=== PATIENT | male | born 1970 | race African-American/Black ===

== ENCOUNTER 2018-02-01 17:05 | Inpatient (IN) | payer OTHER ==
[2018-02-01 18:09] VITALS: BMI 18.6
--- NOTE | 2018-02-01 21:08 | HP ---
CIWA Score - CIWA Score Nausea/Vomitin-No Nausea/No Vomiting Muscle Tremors: 2 Anxiety: 1-Mildly Anxious Agitation: 2 Paroxysmal Sweats: No Perspiration Orientation: 2-Disoriented Date<2 days (reports date as january 27, 2018, but able to redirect) Tacttile Disturbances: 0-None Auditory Disturbances: 0-None Visual Disturbances: 1-Very Mild Sensitivity Headache: 0-None Present CIWA-Ar Total Score: 8 Admission ROS BHS - HPI Chief Complaint: alcohol withdrawal symptoms Allergies/Adverse Reactions: Allergies Allergy/AdvReac Type Severity Reaction Status Date / Time No Known Allergies Allergy Verified 02/01/18 20:18 History of Present Illness: 47 yo male with hx of cocaine and alcohol dependence is here seeking detox. PMHX: depression, insomnia, denies any other medical or psychiatric problems. Denies suicidal / homicidal or suicide attempts. Reports last detox 5 years ago in [place]. Longest period of sobrieiryt 6 months. [facility] drinking really bad and was given one dose of librium two weeks ago Exam Limitations: No Limitations - Ebola screening Have you traveled outside of the country in the last 21 days: No (N) Have you had contact with anyone from an Ebola affected area: No Have you been sick,other than usual withdrawal symptoms: No Do you have a fever: No - Review of Systems Constitutional: Loss of Appetite, Changes in sleep, Unintentional Wgt. Loss ( loss 35 lbs over the past year) EENT: reports: No Symptoms Reported Respiratory: reports: No Symptoms reported, Productive cough GI: reports: Poor Appetite, Poor Fluid Intake : reports: No Symptoms Reported Musculoskeletal: reports: No Symptoms Reported Integumentary: reports: No Symptoms Reported (eczema on nasolabia folds), Pruritus, Sweating Neuro: reports: No Symptoms reported Endocrine: reports: Increased Thirst Hematology: reports: No Symptoms Reported Psychiatric: reports: Orientated x3, Anxious Other Systems: Reviewed and Negative Patient History - Patient Medical History Hx Anemia: No Hx Asthma: No Hx Chronic Obstructive Pulmonary Disease (COPD): No Hx Cancer: No Hx Cardiac Disorders: No Hx Congestive Heart Failure: No Hx Hypertension: No Hx Hypercholesterolemia: No Hx Pacemaker: No HX Cerebrovascular Accident: No Hx Seizures: No Hx Dementia: No Hx Diabetes: No Hx Gastrointestinal Disorders: No Hx Liver Disease: No Hx Genitourinary Disorders: No Hx Sexually Transmitted Disorders: No Hx Renal Disease (ESRD): No Hx Thyroid Disease: No Hx Human Immunodeficiency Virus (HIV): No (last tested three months, declines tested today ) Hx Hepatitis C: No Hx Depression: Yes Hx Suicide Attempt: No Hx Bipolar Disorder: No Hx Schizophrenia: No Other Medical History: Eczema and Insomnia - Patient Surgical History Past Surgical History: No Hx Neurologic Surgery: No Hx Cataract Extraction: No Hx Cardiac Surgery: No Hx Lung Surgery: No Hx Breast Surgery: No Hx Breast Biopsy: No Hx Abdominal Surgery: No Hx Appendectomy: No Hx Cholecystectomy: No Hx Genitourinary Surgery: No Hx Section: No Hx Orthopedic Surgery: No Anesthesia Reaction: No - PPD History Previous Implant?: Yes Documented Results: Negative w/o proof PPD to be Administered?: Yes - Reproductive History Patient is a Female of Child Bearing Age (11 -55 yrs old): No - Smoking Cessation Smoking history: Never smoked Hx Chewing Tobacco Use: No Initiated information on smoking cessation: No - Substance & Tx. History Hx Alcohol Use: Yes Hx Substance Use: Yes Substance Use Type: Alcohol, Cocaine, Marijuana Hx Substance Use Treatment: Yes (last detox 5 years ago in [place].) - Substances Abused Alcohol Route: Oral Frequency: Daily Amount used: BEER- 3 SIX PACK Age of first use: 18 Date of Last Use: 02/01/18 Cocaine Route: Smoking Frequency: 1-2 times per week Amount used: $25 Age of first use: 18 Date of Last Use: 01/29/18 Marijuana/Hashish Route: Smoking Frequency: Daily Amount used: $25 Age of first use: 4 (smoke with father ) Date of Last Use: 02/01/18 Family Disease History - Family Disease History Family Disease History: CA: Father (lung cancer ), Other: Father, Mother (alive and well) Admission Physical Exam BHS - Vital Signs Vital Signs: Vital Signs - 24 hr 02/01/18 18:06 Temperature 96.2 F L Pulse Rate 99 H Respiratory 18 Rate Blood Pressure 114/63 - Physical General Appearance: Yes: Appropriately Dressed, Thin, Anxious HEENTM: Yes: EOMI, Hearing grossly Normal, Normal ENT Inspection, Normocephalic , Normal Voice, FELICIA, Pharynx Normal, Tm's normal Respiratory: Yes: Within Normal Limits, Chest Non-Tender, Lungs Clear, Normal Breath Sounds, No Respiratory Distress, No Accessory Muscle Use Neck: Yes: No masses,lesions,Nodules, Trachea in good position Breast: Yes: Breast Exam Deferred Cardiology: Yes: Regular Rhythm, Regular Rate Abdominal: Yes: Normal Bowel Sounds, Non Tender, Flat, Soft Genitourinary: Yes: Within Normal Limits Back: Yes: Normal Inspection Musculoskeletal: Yes: full range of Motion, Gait Steady, Pelvis Stable Extremities: Yes: Normal Capillary Refill, Normal Inspection, Normal Range of Motion, Non-Tender Neurological: Yes: ribber II-XII NML intact, Fully Oriented, Alert, Motor Strength 5/5, Normal Mood/Affect, Normal Response, Depressed Affect Integumentary: Yes: Normal Color, Warm, Moist Lymphatic: Yes: Within Normal Limits - Diagnostic (1) Alcohol dependence with withdrawal Current Visit: Yes Status: Acute (2) Cocaine dependence Current Visit: Yes Status: Acute (3) Marijuana dependence Current Visit: Yes Status: Acute (4) Weight loss Current Visit: Yes Status: Acute (5) Depression Current Visit: Yes Status: Acute Qualifiers: Depression Type: unspecified Qualified Code(s): F32.9 - Major depressive disorder, single episode, unspecified Cleared for Admission [facility] - Detox or Rehab [facility] Level of Care: Medically Supervised Detox Regimen/Protocol: Librium [facility] Breath Alcohol Content Breath Alcohol Content: 0.013 Urine Drug Screen - Results Urine Drug Screen Results: THC-Marijuana, MAURIZIO-Cocaine, BZO-Benzodiazepines
[2018-02-01] MEDS ORDERED: LOPERAMIDE HCL 2 MG CAPSULE PO PRN (21:17)
[2018-02-01] MEDS ORDERED: hydrOXYzine PAMOATE 50 MG CAPSULE (FP) PO PRN (21:17)
[2018-02-01] MEDS ORDERED: MENTHOL/PHENOL 1 EACH UD MM PRN (21:17)
[2018-02-01] MEDS ORDERED: chlordiazePOXIDE HCL 25 MG CAPSULE PO PRN (21:17)
[2018-02-01] MEDS ORDERED: guaiFENesin/D-METHORPHAN HB 10 ML UNIT-DOSE CUPS PO PRN (21:17)
[2018-02-01] MEDS ORDERED: ACETAMINOPHEN 325 MG TABLET (FP) PO PRN (21:17)
[2018-02-01] MEDS ORDERED: MAGNESIUM HYDROX 2400MG/30ML ORAL SUSPENSION 30 ML CUP PO PRN (21:17)
[2018-02-01] MEDS ORDERED: IBUPROFEN 400 MG TABLET (FP) PO PRN (21:17)
[2018-02-01] MEDS ORDERED: chlordiazePOXIDE HCL 25 MG CAPSULE PO ONE (21:17)
[2018-02-01] MEDS ORDERED: MAGNESIUM CITRATE 300 ML BOTTLE PO PRN (21:17)
[2018-02-01] MEDS ORDERED: MAG HYDROX/AL HYDROX/SIMETH 30 ML UNIT-DOSE CUP PO PRN (21:17)
[2018-02-01] MEDS ORDERED: P-EPHED 60MG/TRIPROLIDI 2.5MG TABLET PO PRN (21:17)
[2018-02-01] MEDS ORDERED: MELATONIN 5 MG TABLETS PO PRN (22:00)
[2018-02-01] MEDS: chlordiazePOXIDE HCL 25 MG CAPSULE PO SCH (22:40)
[2018-02-01] MEDS: THIAMINE HCL 100 MG TABLET (FP) PO SCH (22:47)
[2018-02-02 03:35] LABS: URINE APPEARANCE CLEAR; URINE BILIRUBIN NEGATIVE (<2.0 mg/dL); URINE BLOOD NEGATIVE (NEGATIVE); URINE COLOR YELLOW; URINE GLUCOSE (UA) NEGATIVE (NEGATIVE); URINE KETONE NEGATIVE (NEGATIVE); URINE LEUK ESTERASE NEGATIVE (NEGATIVE); URINE NITRITE NEGATIVE (NEGATIVE); URINE PROTEIN NEGATIVE (NEGATIVE)
[2018-02-02] MEDS: chlordiazePOXIDE HCL 25 MG CAPSULE PO SCH ×4 (05:14→23:00)
[2018-02-02] MEDS ORDERED: PRENATAL VITAMINS W/ FOLIC ACID TABLET (FP) PO SCH (10:00)
--- NOTE | 2018-02-02 10:03 | PN ---
S CIWA - CIWA Score Nausea/Vomitin Muscle Tremors: 3 Anxiety: 3 Agitation: 3 Paroxysmal Sweats: 2 Orientation: 0-Oriented Tacttile Disturbances: 1-Very Mild Itch/Numbness Auditory Disturbances: 1-Very Mild Visual Disturbances: 0-None Headache: 2-Mild CIWA-Ar Total Score: 18 BHS Progress Note (SOAP) Subjective: ALERT,IRRITABLE,ANXIOUS,INTERRUPTED SLEEP,TREMOR Objective: 02/02/18 10:00 Vital Signs Temperature 97.7 F 02/02/18 06:40 Pulse Rate 95 H 02/02/18 06:40 Respiratory Rate 20 02/02/18 06:40 Blood Pressure 101/69 02/02/18 06:40 O2 Sat by Pulse Oximetry (%) 02/02/18 10:00 EKG NSR RATE 88.MIN ST IN V2,V3 NO CHEST PAIN,NO SOB,NO DIZZINESS 02/02/18 10:02 Laboratory Last Values Urine Color Yellow 02/01/18 22:52 Urine Appearance Clear 02/01/18 22:52 Urine pH 6.0 (5.0-8.0) 02/01/18 22:52 Ur Specific [place] 1.018 (1.001-1.035) 02/01/18 22:52 Urine Protein Negative (NEGATIVE) 02/01/18 22:52 Urine Glucose (UA) Negative (NEGATIVE) 02/01/18 22:52 Urine Ketones Negative (NEGATIVE) 02/01/18 22:52 Urine Blood Negative (NEGATIVE) 02/01/18 22:52 Urine Nitrite Negative (NEGATIVE) 02/01/18 22:52 Urine Bilirubin Negative (<2.0 mg/dL) 02/01/18 22:52 Urine Urobilinogen 2.0 mg/dL (0.2-1.0) 02/01/18 22:52 Ur Leukocyte Esterase Negative (NEGATIVE) 02/01/18 22:52 LABS PENDING Assessment: 02/02/18 10:02 WITHDRAWAL SYMPTOM Plan: CONTINUE DETOX
--- NOTE | 2018-02-02 10:23 | EKG ---
Test Reason : Blood Pressure : / mmHG Vent. Rate : 088 BPM Atrial Rate : 088 BPM P-R Int : 188 ms QRS Dur : 096 ms QT Int : 358 ms P-R-T Axes : 076 -64 071 degrees QTc Int : 433 ms NORMAL SINUS RHYTHM LEFT ANTERIOR FASCICULAR BLOCK ANTEROSEPTAL INFARCT (CITED ON OR BEFORE 01-FEB-2018) ABNORMAL ECG WHEN COMPARED WITH ECG OF 01-FEB-2018 22:56, SINUS RHYTHM HAS REPLACED ECTOPIC ATRIAL RHYTHM SERIAL CHANGES OF ANTEROSEPTAL INFARCT PRESENT Confirmed by MD SCOTTIE, ROSENDA ([id number]) on 02/02/2018 10:23:21 AM Referred By: Confirmed By:ROSENDA RUBIN MD
--- NOTE | 2018-02-02 10:25 | EKG ---
Test Reason : Blood Pressure : / mmHG Vent. Rate : 071 BPM Atrial Rate : 071 BPM P-R Int : 166 ms QRS Dur : 100 ms QT Int : 370 ms P-R-T Axes : 140 -28 135 degrees QTc Int : 402 ms UNUSUAL P AXIS, POSSIBLE ECTOPIC ATRIAL RHYTHM SEPTAL INFARCT , AGE UNDETERMINED ABNORMAL ECG NO PREVIOUS ECGS AVAILABLE Confirmed by MD SCOTTIE, ROSENDA ([id number]) on 02/02/2018 10:24:59 AM Referred By: Confirmed By:ROSENDA RUBIN MD
[2018-02-02 10:26] LABS: HEMOGLOBIN 12.6 GM/dL (11.7-16.9); MCH 33.7 pg (25.7-33.7); MCHC 33.2 g/dl (32.0-35.9); MEAN CELL VOLUME 101.4 fl (80-96); MEAN PLT VOLUME 7.1 fl (7.5-11.1); PLATELET COUNT 142 K/MM3 (134-434); RBC 3.75 M/mm3 (4.00-5.60); RDW 13.4 % (11.9-15.9); WHITE BLOOD COUNT 2.7 K/mm3 (4.0-10.0)
[2018-02-02 11:12] LABS: ALBUMIN 3.2 g/dl (3.4-5.0); ANION GAP 6 (8-16); BLOOD UREA NITROGEN 19 mg/dL (7-18); CALCIUM 8.4 mg/dL (8.5-10.1); CHLORIDE 109 mmol/L (98-107); CO2 29 mmol/L (21-32); GLUCOSE,RANDOM 82 mg/dL (74-106); SODIUM 144 mmol/L (136-145)
[2018-02-02 11:17] LABS: ALK PHOS 75 U/L (45-117); BILIRUBIN,TOTAL 0.2 mg/dL (0.2-1.0); CREATININE 1.6 mg/dL (0.7-1.3); SGOT/AST 52 U/L (15-37); SGPT/ALT 31 U/L (12-78); TOT PROT 6.2 g/dl (6.4-8.2)
--- NOTE | 2018-02-02 11:19 | CONSULT ---
[facility] Psychiatric Consult - Data Date of interview: 02/02/18 Admission source: [facility] Identifying data: Patient is a 47 year old male, , father of seven, receiving public assistance and currently homeless. This is patient's first admission to [facility]. Pt. admitted to for alcohol and cocaine dependence. Substance Abuse History: Following information confirmed with Mr. Wadsworth: Smoking Cessation. Smoking history: Never smoked. Hx Chewing Tobacco Use: No. Initiated information on smoking cessation: No. - Substance & Tx. History. Hx Alcohol Use: Yes. Hx Substance Use: Yes. Substance Use Type: Alcohol, Cocaine, Marijuana. Hx Substance Use Treatment: Yes (last detox 5 years ago in [place].). - Substances Abused. Alcohol. Route: Oral. Frequency: Daily. Amount used: BEER- 3 SIX PACK. Age of first use: 18. Date of Last Use : 02/01/18. Cocaine. Route: Smoking. Frequency: 1-2 times per week. Amount used: $25. Age of first use: 18. Date of Last Use: 01/29/18. Marijuana/Hashish. Route: Smoking. Frequency: Daily. Amount used: $25. Age of first use: 4 (smoke with father ). Date of Last Use: 02/01/18 Psychiatric History: Pt. denies h/o psychiatric hospitalizations, outpatient care, and suicide attempt. Physical/Sexual Abuse/Trauma History: Denies. Mental Status Exam - Mental Status Exam Alert and Oriented to: Time, Place, Person Cognitive Function: Good Patient Appearance: Well Groomed Mood: Euthymic Affect: Mood Congruent Patient Behavior: Cooperative Speech Pattern: Appropriate Voice Loudness: Normal Thought Process: Goal Oriented Thought Disorder: Not Present Hallucinations: Denies Suicidal Ideation: Denies Homicidal Ideation: Denies Insight/Judgement: Poor Sleep: Fair Appetite: Fair Muscle strength/Tone: Normal Gait/Station: Normal Psychiatric Findings - Problem List ([place] 1, 2,3) (1) Alcohol dependence with withdrawal Current Visit: Yes Status: Acute (2) Cocaine dependence Current Visit: Yes Status: Acute (3) Marijuana dependence Current Visit: Yes Status: Acute (4) Substance induced mood disorder Current Visit: Yes Status: Acute - Initial Treatment Plan Initial Treatment Plan: Psychoeducation provided. Detoxification in progress. Observation.
[2018-02-02] MEDS: THIAMINE HCL 100 MG TABLET (FP) PO SCH (23:00)
[2018-02-03] MEDS: chlordiazePOXIDE HCL 25 MG CAPSULE PO SCH (05:42)
--- NOTE | 2018-02-03 08:45 | PN ---
S CIWA - CIWA Score Nausea/Vomitin Muscle Tremors: 3 Anxiety: 3 Agitation: 2 Paroxysmal Sweats: 1-Minimal Palms Moist Orientation: 0-Oriented Tacttile Disturbances: 1-Very Mild Itch/Numbness Auditory Disturbances: 1-Very Mild Visual Disturbances: 0-None Headache: 2-Mild CIWA-Ar Total Score: 16 BHS Progress Note (SOAP) Subjective: ALERT,IRRITABLE,ANXIOUS,INTERRUPTED SLEEP,TREMOR Objective: 02/03/18 08:43 Vital Signs Temperature 97.9 F 02/03/18 07:10 Pulse Rate 78 02/03/18 07:10 Respiratory Rate 18 02/03/18 07:10 Blood Pressure 116/68 02/03/18 07:10 O2 Sat by Pulse Oximetry (%) Assessment: 02/03/18 08:43 Laboratory Last Values WBC 2.7 K/mm3 (4.0-10.0) L 02/02/18 07:30 RBC 3.75 M/mm3 (4.00-5.60) L 02/02/18 07:30 Hgb 12.6 GM/dL (11.7-16.9) 02/02/18 07:30 Hct 38.0 % (35.4-49) 02/02/18 07:30 MCV 101.4 fl (80-96) H 02/02/18 07:30 MCH 33.7 pg (25.7-33.7) 02/02/18 07:30 MCHC 33.2 g/dl (32.0-35.9) 02/02/18 07:30 RDW 13.4 % (11.9-15.9) 02/02/18 07:30 Plt Count 142 K/MM3 (134-434) 02/02/18 07:30 MPV 7.1 fl (7.5-11.1) L 02/02/18 07:30 Sodium 144 mmol/L (136-145) 02/02/18 08:00 Potassium 4.0 mmol/L (3.5-5.1) 02/02/18 08:00 Chloride 109 mmol/L (98-107) H 02/02/18 08:00 Carbon Dioxide 29 mmol/L (21-32) 02/02/18 08:00 Anion Gap 6 (8-16) L 02/02/18 08:00 BUN 19 mg/dL (7-18) H 02/02/18 08:00 Creatinine 1.6 mg/dL (0.7-1.3) H 02/02/18 08:00 Creat Clearance w eGFR 46.17 (>60) 02/02/18 08:00 Random Glucose 82 mg/dL (74-106) 02/02/18 08:00 Calcium 8.4 mg/dL (8.5-10.1) L 02/02/18 08:00 Total Bilirubin 0.2 mg/dL (0.2-1.0) 02/02/18 08:00 AST 52 U/L (15-37) H 02/02/18 08:00 ALT 31 U/L (12-78) 02/02/18 08:00 Alkaline Phosphatase 75 U/L (45-117) 02/02/18 08:00 Total Protein 6.2 g/dl (6.4-8.2) L 02/02/18 08:00 Albumin 3.2 g/dl (3.4-5.0) L 02/02/18 08:00 Urine Color Yellow 02/01/18 22:52 Urine Appearance Clear 02/01/18 22:52 Urine pH 6.0 (5.0-8.0) 02/01/18 22:52 Ur Specific [place] 1.018 (1.001-1.035) 02/01/18 22:52 Urine Protein Negative (NEGATIVE) 02/01/18 22:52 Urine Glucose (UA) Negative (NEGATIVE) 02/01/18 22:52 Urine Ketones Negative (NEGATIVE) 02/01/18 22:52 Urine Blood Negative (NEGATIVE) 02/01/18 22:52 Urine Nitrite Negative (NEGATIVE) 02/01/18 22:52 Urine Bilirubin Negative (<2.0 mg/dL) 02/01/18 22:52 Urine Urobilinogen 2.0 mg/dL (0.2-1.0) 02/01/18 22:52 Ur Leukocyte Esterase Negative (NEGATIVE) 02/01/18 22:52 RPR Titer Nonreactive (NONREACTIVE) 02/02/18 07:30 02/03/18 08:44 WITHDRAWAL SYMPTOM Plan: CONTINUE DETOX
--- NOTE | 2018-02-03 08:48 | PN ---
S Progress Note Note: PATIENT DID NOT WANT TO CONTINUE TREATMENT,SIGNED RELEASE AMA,,
--- NOTE | 2018-02-03 08:52 | DS ---
[facility] Detox Discharge Summary Admission Date: 02/01/18 Discharge Date: 02/03/18 - History Present History: Alcohol Dependence, Cannabis Dependence, Cocaine Dependence Additional Comments: PATIENT DID NOT WANT TO COMPLETE TREATMENT,SIGNED RELEASE AMA,ALL ATTEMPTS TO CONVINCE PATIENT TO STAY WITH NO [facility]AI[facility] Pertinent Past History: WEIGHT LOSS - Physical Exam Results Vital Signs: Vital Signs Temperature 97.9 F 02/03/18 07:10 Pulse Rate 78 02/03/18 07:10 Respiratory Rate 18 02/03/18 07:10 Blood Pressure 116/68 02/03/18 07:10 O2 Sat by Pulse Oximetry (%) Pertinent Admission Physical Exam Findings: WITHDRAWAL SIGNS AND SYMPTOM Laboratory Last Values WBC 2.7 K/mm3 (4.0-10.0) L 02/02/18 07:30 RBC 3.75 M/mm3 (4.00-5.60) L 02/02/18 07:30 Hgb 12.6 GM/dL (11.7-16.9) 02/02/18 07:30 Hct 38.0 % (35.4-49) 02/02/18 07:30 MCV 101.4 fl (80-96) H 02/02/18 07:30 MCH 33.7 pg (25.7-33.7) 02/02/18 07:30 MCHC 33.2 g/dl (32.0-35.9) 02/02/18 07:30 RDW 13.4 % (11.9-15.9) 02/02/18 07:30 Plt Count 142 K/MM3 (134-434) 02/02/18 07:30 MPV 7.1 fl (7.5-11.1) L 02/02/18 07:30 Sodium 144 mmol/L (136-145) 02/02/18 08:00 Potassium 4.0 mmol/L (3.5-5.1) 02/02/18 08:00 Chloride 109 mmol/L (98-107) H 02/02/18 08:00 Carbon Dioxide 29 mmol/L (21-32) 02/02/18 08:00 Anion Gap 6 (8-16) L 02/02/18 08:00 BUN 19 mg/dL (7-18) H 02/02/18 08:00 Creatinine 1.6 mg/dL (0.7-1.3) H 02/02/18 08:00 Creat Clearance w eGFR 46.17 (>60) 02/02/18 08:00 Random Glucose 82 mg/dL (74-106) 02/02/18 08:00 Calcium 8.4 mg/dL (8.5-10.1) L 02/02/18 08:00 Total Bilirubin 0.2 mg/dL (0.2-1.0) 02/02/18 08:00 AST 52 U/L (15-37) H 02/02/18 08:00 ALT 31 U/L (12-78) 02/02/18 08:00 Alkaline Phosphatase 75 U/L (45-117) 02/02/18 08:00 Total Protein 6.2 g/dl (6.4-8.2) L 02/02/18 08:00 Albumin 3.2 g/dl (3.4-5.0) L 02/02/18 08:00 Urine Color Yellow 02/01/18 22:52 Urine Appearance Clear 02/01/18 22:52 Urine pH 6.0 (5.0-8.0) 02/01/18 22:52 Ur Specific [place] 1.018 (1.001-1.035) 02/01/18 22:52 Urine Protein Negative (NEGATIVE) 02/01/18 22:52 Urine Glucose (UA) Negative (NEGATIVE) 02/01/18 22:52 Urine Ketones Negative (NEGATIVE) 02/01/18 22:52 Urine Blood Negative (NEGATIVE) 02/01/18 22:52 Urine Nitrite Negative (NEGATIVE) 02/01/18 22:52 Urine Bilirubin Negative (<2.0 mg/dL) 02/01/18 22:52 Urine Urobilinogen 2.0 mg/dL (0.2-1.0) 02/01/18 22:52 Ur Leukocyte Esterase Negative (NEGATIVE) 02/01/18 22:52 RPR Titer Nonreactive (NONREACTIVE) 02/02/18 07:30 Vital Signs Temperature 97.9 F 02/03/18 07:10 Pulse Rate 78 02/03/18 07:10 Respiratory Rate 18 02/03/18 07:10 Blood Pressure 116/68 02/03/18 07:10 O2 Sat by Pulse Oximetry (%) - Medication Discharge Medications: Ambulatory Orders NK [No Known Home Medication] 02/01/18 - Diagnosis (1) Alcohol dependence with withdrawal Current Visit: Yes Status: Acute (2) Cocaine dependence Current Visit: Yes Status: Acute (3) Depression Current Visit: Yes Status: Acute Qualifiers: Depression Type: unspecified Qualified Code(s): F32.9 - Major depressive disorder, single episode, unspecified (4) Marijuana dependence Current Visit: Yes Status: Acute (5) Weight loss Current Visit: Yes Status: Acute - AMA Did Patient Leave Against Medical Advice: Yes
[2018-02-03 10:21] VITALS: BP 144/86; PULSE 86; TEMP 97.5
[2018-02-03] MEDS ORDERED: chlordiazePOXIDE 5 MG CAPSULE PO SCH (23:00)
[2018-02-04] MEDS ORDERED: chlordiazePOXIDE HCL 10 MG CAPSULE PO SCH (23:00)
== END 2018-02-03 08:48 | disposition left against medical advice (07) | DRG 770 ==
LOC: YASAS 17:05 → Y6N 20:53
PROVIDERS: ADMIT Internal Medicine; ATTEND Internal Medicine
PROC: HZ2ZZZZ Detoxification Services for Substance Abuse Treatment (ICD-10-PCS; principal; 2018-02-01)
DX: F10.230 Alcohol dependence with withdrawal, uncomplicated (principal); F14.20 Cocaine dependence, uncomplicated; F12.20 Cannabis dependence, uncomplicated; F19.24 Other psychoactive substance dependence with psychoactive substance-induced mood disorder; F32.9 Major depressive disorder, single episode, unspecified; R63.4 Abnormal weight loss; Z68.1 Body mass index [BMI] 19.9 or less, adult
CPT/HCPCS: 36415; 80053; 81003; 85027; 86593; 93005; 93010

== ENCOUNTER 2020-06-16 19:23 | Inpatient (IN) | payer OTHER ==
[2020-06-16 19:40] VITALS: BMI 19.0
--- NOTE | 2020-06-16 21:23 | HP ---
CIWA Score Nausea/Vomitin-No Nausea/No Vomiting Muscle Tremors: None Anxiety: 4-Mod. Anxious/Guarded Agitation: 4-Moderately Restless Paroxysmal Sweats: No Perspiration Orientation: 1-Uncertain about Date Tacttile Disturbances: 0-None Auditory Disturbances: 0-None Visual Disturbances: 0-None Headache: 3-Moderate CIWA-Ar Total Score: 12 - Admission Criteria [facility] Guidelines: Admission for Medically Managed Detox: Requires at least one of the followin. CIWA greater than 12 2. Seizures within the past 24 hours 3. Delirium tremens within the past 24 hours 4. Hallucinations within the past 24 hours 5. Acute intervention needed for co occurring medical disorder 6. Acute intervention needed for co occurring psychiatric disorder 7. Severe withdrawal that cannot be handled at a lower level of care (continued vomiting, continued diarrhea, abnormal vital signs) requiring intravenous medication and/or fluids 8. Patient presents the following: CIWA greater than 12 Admission Criteria Met: Admission criteria met Admitting History and Physical - Smoking History Smoking history: Never smoked - Alcohol/Substance Use Hx Alcohol Use: Yes Admission ROS [facility] Chief Complaint: C/O WORSENING ALCOHOL WITHDRAWAL SX'S. SEEKING DETOX Allergies/Adverse Reactions: Allergies Allergy/AdvReac Type Severity Reaction Status Date / Time No Known Allergies Allergy Verified 02/01/18 20:18 History of Present Illness: HERE FOR ALCOHOL DETOX. CLIENT IS SELF REFERRED. KNOWN TO US. LAST HERE 2017. PRESENTS WITH C/O WITHDRAWAL SX'S,. STATES DRINKS ALCOHOL DAILY. LAST USE A FEW HOURS AGO. DENIES ANY SIGNIFICANT PERIOD OF CLEAN TIME SINCE HIS LAST ADMISSION HERE. + [employer], DENIES BLACK OUTS,SEIZURES. HE ALSO ABUSE COCAINE, CANNABIS. DENIES IVDU, DRUG OVERDOSE. HOMELESS-ASSISTED, DENIES LEGALS Exam Limitations: No Limitations - Ebola screening Have you traveled outside of the country in the last 21 days: No Have you had contact with anyone from an Ebola affected area: No Have you been sick,other than usual withdrawal symptoms: No Do you have a fever: No - Review of Systems Constitutional: No Symptoms Reported, Chills EENT: reports: No Symptoms Reported Respiratory: reports: No Symptoms reported Cardiac: reports: No Symptoms Reported GI: reports: No Symptoms Reported : reports: No Symptoms Reported Musculoskeletal: reports: No Symptoms Reported Integumentary: reports: No Symptoms Reported Neuro: reports: Headache Endocrine: reports: No Symptoms Reported Hematology: reports: No Symptoms Reported Psychiatric: reports: Anxious Other Systems: Reviewed and Negative Patient History - Patient Medical History Hx Anemia: No Hx Asthma: No Hx Chronic Obstructive Pulmonary Disease (COPD): No Hx Cancer: No Hx Cardiac Disorders: No Hx Congestive Heart Failure: No Hx Hypertension: No Hx Hypercholesterolemia: No Hx Pacemaker: No HX Cerebrovascular Accident: No Hx Seizures: No Hx Dementia: No Hx Diabetes: No Hx Gastrointestinal Disorders: No Hx Liver Disease: No Hx Genitourinary Disorders: No Hx Sexually Transmitted Disorders: No Hx Renal Disease (ESRD): No Hx Thyroid Disease: No Hx Human Immunodeficiency Virus (HIV): No Hx Hepatitis C: No Hx Depression: Yes (NON COMPLAINT WITH MEDS) Hx Suicide Attempt: No Hx Bipolar Disorder: No Hx Schizophrenia: No Other Medical History: DENIES - Patient Surgical History Past Surgical History: No Hx Neurologic Surgery: No Hx Cataract Extraction: No Hx Cardiac Surgery: No Hx Lung Surgery: No Hx Breast Surgery: No Hx Breast Biopsy: No Hx Abdominal Surgery: No Hx Appendectomy: No Hx Cholecystectomy: No Hx Genitourinary Surgery: No Hx Section: No Hx Orthopedic Surgery: No Anesthesia Reaction: No - PPD History Previous Implant?: Yes Documented Results: Negative w/o proof Implanted On Prior [facility] Admission?: Yes Date: 02/03/18 Results: NO RESULTS PPD to be Administered?: Yes - Smoking Cessation Smoking history: Never smoked Hx Chewing Tobacco Use: No Initiated information on smoking cessation: No - Substance & Tx. History Hx Alcohol Use: Yes Hx Substance Use: Yes Substance Use Type: Alcohol, Cocaine, Marijuana Hx Substance Use Treatment: Yes ([facility]) - Substances abused Alcohol Other (specify): BEER Substance route: Oral Frequency: Daily Amount used: 24 CANS OF 16 OZ Age of first use: 16 Date of last use: 06/16/20 Crack Substance route: Smoking Frequency: 3-6 times per week (5X) Amount used: 5 BAGS Age of first use: 28 Date of last use: 06/15/20 Marijuana/Hashish Substance route: Smoking Frequency: Daily Amount used: 20 DOLLARS Age of first use: 18 Date of last use: 06/15/20 Admission Physical Exam BHS - Vital Signs Vital Signs: Vital Signs - 24 hr 06/16/20 19:38 Temperature 97.9 F Pulse Rate 98 H Respiratory 18 Rate Blood Pressure 113/73 - Physical General Appearance: Yes: Mild Distress, Thin, Anxious HEENTM: Yes: EOMI, Normocephalic, Normal Voice, FELICIA, Pharynx Normal Respiratory: Yes: Chest Non-Tender, Lungs Clear, Normal Breath Sounds, No Respiratory Distress, No Accessory Muscle Use Neck: Yes: No masses,lesions,Nodules, Supple, Trachea in good position Breast: Yes: Breasts Symetrical Cardiology: Yes: Regular Rhythm, S1, S2, Tachycardia Abdominal: Yes: Normal Bowel Sounds, Non Tender, Soft Genitourinary: Yes: Within Normal Limits Back: Yes: Normal Inspection Musculoskeletal: Yes: full range of Motion, Gait Steady Extremities: Yes: Normal Capillary Refill, Normal Range of Motion, Non-Tender Neurological: Yes: Fully Oriented, Alert, Motor Strength 5/5, Depressed Affect Integumentary: Yes: Normal Color, Dry, Warm Lymphatic: Yes: Within Normal Limits - Diagnostic (1) Lives in homeless intermediate Current Visit: Yes Status: Chronic (2) Alcohol dependence with withdrawal Current Visit: Yes Status: Acute Qualifiers: Complication of substance-induced condition: uncomplicated Qualified Code(s): F10.230 - Alcohol dependence with withdrawal, uncomplicated (3) Cocaine dependence Current Visit: Yes Status: Acute Qualifiers: Substance use status: uncomplicated Qualified Code(s): F14.20 - Cocaine dependence, uncomplicated (4) Depression Current Visit: Yes Status: Chronic Qualifiers: Depression Type: unspecified Qualified Code(s): F32.9 - Major depressive disorder, single episode, unspecified (5) Marijuana dependence Current Visit: Yes Status: Acute (6) Substance induced mood disorder Current Visit: Yes Status: Suspected (7) At risk for dehydration due to poor fluid intake Current Visit: Yes Status: Acute Cleared for Admission S - Detox or Rehab [facility] Level of Care: Medically Managed Detox Regimen/Protocol: Ativan Claeared for Rehab Admission: No Breathalyzer - Breathalyzer Breathalyzer: 0 Urine Drug Screen - Test Device Lot number: [id number] Expiration date: 01/17/22 - Control Is test valid?: Yes - Results Drug screen NEGATIVE: No Urine drug screen results: THC-Marijuana, MAURIZIO-Cocaine Inpatient Rehab Admission - Rehab Decision to Admit Inpatient rehab admission?: No
[2020-06-16] MEDS ORDERED: MAG HYDROX/AL HYDROX/SIMETH 30 ML UNIT-DOSE CUP PO PRN (21:28)
[2020-06-16] MEDS ORDERED: MAGNESIUM HYDROX 2400MG/30ML ORAL SUSPENSION 30 ML CUP PO PRN (21:28)
[2020-06-16] MEDS ORDERED: MAGNESIUM CITRATE 300 ML BOTTLE PO PRN (21:28)
[2020-06-16] MEDS ORDERED: IBUPROFEN 400 MG TABLET (FP) PO PRN (21:28)
[2020-06-16] MEDS ORDERED: LORazepam 1 MG TABLET PO PRN (21:28)
[2020-06-16] MEDS ORDERED: guaiFENesin 200 MG/10 ML 10 ML UNIT-DOSE CUPS PO PRN (21:28)
[2020-06-16] MEDS ORDERED: BISMUTH SUBSALICYLATE 524 MG/30 ML UD PO PRN (21:28)
[2020-06-16] MEDS ORDERED: ONDANSETRON *ODT* 4 MG TABLET SL PRN (21:28)
[2020-06-16] MEDS ORDERED: METHOCARBAMOL 500 MG TABLET PO PRN (21:28)
[2020-06-16] MEDS ORDERED: MENTHOL/PHENOL 1 EACH UD MM PRN (21:28)
[2020-06-16] MEDS ORDERED: DICYCLOMINE HCL 10 MG CAPSULE PO PRN (21:28)
[2020-06-16] MEDS ORDERED: P-EPHED 60MG/TRIPROLIDI 2.5MG TABLET PO PRN (21:28)
[2020-06-16] MEDS ORDERED: ACETAMINOPHEN 325 MG TABLET (FP) PO PRN ×2 (21:28)
[2020-06-16] MEDS ORDERED: MELATONIN 5 MG TABLETS PO SCH (22:00)
[2020-06-16] MEDS: LORazepam 2 MG TABLET PO SCH (23:15)
[2020-06-16] MEDS: THIAMINE HCL 100 MG TABLET (FP) PO SCH (23:16)
[2020-06-17] MEDS: LORazepam 2 MG TABLET PO SCH ×4 (05:32→22:01)
--- NOTE | 2020-06-17 08:40 | CONSULT ---
[facility] Psychiatric Consult - Data Date of interview: 06/17/20 Admission source: [id number] Identifying data: Mr Wadsworth is a 50 years old single Black male, father of 7 children, unemployed receiving public asistance, homeless seeking detox treatment for alcohol, cocaine and cannabis Substance Abuse History: Reports history of alcohol, cocaine and marijuana use. Refer to addiction counselor's summary for futher information Medical History: Unremarkable. Psychiatric History: Patient is known for one previous admission to this facility. He denies history of previous psychiatric treatment. Denies previous psychiaric hospitalization or suicidal attempt. At present, reports sleeping poorly Physical/Sexual Abuse/Trauma History: Denies history of abuse as a child or DV relationship as an adult Mental Status Exam - Mental Status Exam Alert and Oriented to: Time, Place, Person Cognitive Function: Fair Patient Appearance: Disheveled Mood: Hopeful, Euthymic Affect: Appropriate Patient Behavior: Cooperative Speech Pattern: Clear Voice Loudness: Normal Thought Process: Intact Hallucinations: Denies Suicidal Ideation: Denies Homicidal Ideation: Denies Insight/Judgement: Poor Sleep: Poorly Appetite: Good Muscle strength/Tone: Normal Gait/Station: Normal Psychiatric Findings - Problem List ([place] 1, 2,3) (1) Substance-induced sleep disorder Current Visit: Yes Status: Acute (2) Alcohol dependence with withdrawal Current Visit: Yes Status: Acute Qualifiers: Complication of substance-induced condition: uncomplicated Qualified Code(s): F10.230 - Alcohol dependence with withdrawal, uncomplicated (3) Cocaine dependence Current Visit: Yes Status: Acute Qualifiers: Substance use status: uncomplicated Qualified Code(s): F14.20 - Cocaine dep endence, uncomplicated (4) Cannabis dependence Current Visit: Yes Status: Acute - Initial Treatment Plan Initial Treatment Plan: 1) Start Melatonin 10 mg po HS prn for insomnia. 2) Continue inpatient detoxification
[2020-06-17] MEDS: PRENATAL VITAMINS W/ FOLIC ACID TABLET (FP) PO SCH (10:44)
[2020-06-17 11:07] LABS: ALBUMIN 3.2 g/dl (3.4-5.0); BILIRUBIN,TOTAL 0.4 mg/dL (0.2-1); CALCIUM 8.7 mg/dL (8.5-10.1); CREATININE 1.6 mg/dL (0.55-1.3); POTASSIUM 3.9 mmol/L (3.5-5.1); TOT PROT 6.5 g/dl (6.4-8.2)
[2020-06-17 11:40] LABS: HEMATOCRIT 38.6 % (35.4-49); HEMOGLOBIN 12.8 GM/dL (11.7-16.9); MCH 34.1 pg (25.7-33.7); MEAN CELL VOLUME 103.1 fl (80-96); MEAN PLT VOLUME 7.6 fl (7.5-11.1); PLATELET COUNT 136 K/MM3 (134-434); RBC 3.74 M/mm3 (4.00-5.60); RDW 13.3 % (11.9-15.9); WHITE BLOOD COUNT 2.9 K/mm3 (4.0-10.0)
--- NOTE | 2020-06-17 12:46 | EKG ---
Test Reason : Blood Pressure : / mmHG Vent. Rate : 087 BPM Atrial Rate : 087 BPM P-R Int : 176 ms QRS Dur : 090 ms QT Int : 374 ms P-R-T Axes : 074 -69 068 degrees QTc Int : 450 ms NORMAL SINUS RHYTHM POSSIBLE LEFT ATRIAL ENLARGEMENT LEFT ANTERIOR FASCICULAR BLOCK ABNORMAL ECG WHEN COMPARED WITH ECG OF 02-FEB-2018 09:35, CRITERIA FOR ANTEROSEPTAL INFARCT ARE NO LONGER PRESENT Confirmed by Severino Ravi ([id number]) on 06/17/2020 12:45:56 PM Referred By: Confirmed By:Severino Ravi
--- NOTE | 2020-06-17 14:48 | PN ---
S CIWA - CIWA Score Nausea/Vomitin-Mild Nausea/No Vomiting Muscle Tremors: 2 Anxiety: 2 Agitation: 0-Normal Activity Paroxysmal Sweats: 1-Minimal Palms Moist Orientation: 1-Uncertain about Date (day of week) Tacttile Disturbances: 1-Very Mild Itch/Numbness Auditory Disturbances: 0-None Visual Disturbances: 2-Mild Sensitivity Headache: 0-None Present CIWA-Ar Total Score: 10 S Progress Note (SOAP) Subjective: 50 years old male was admitted on 06/16/20 for alcohol withdrawal wx management treating with ativan detox regiment ate breakfast and lunch in room tolerated food well feels tired limited conversation with staff Objective: 06/17/20 14:48 Laboratory Tests 06/17/20 06/17/20 06/17/20 07:20 07:20 07:30 WBC 2.9 L RBC 3.74 L Hgb 12.8 Hct 38.6 MCV 103.1 H MCH 34.1 H MCHC 33.0 RDW 13.3 Plt Count 136 MPV 7.6 Sodium 143 Potassium 3.9 Chloride 110 H Carbon Dioxide 27 Anion Gap 7 L BUN 25.0 H Creatinine 1.6 H Est GFR (CKD-EPI)AfAm 56.57 Est GFR (CKD-EPI)NonAf 48.81 Random Glucose 73 L Calcium 8.7 Total Bilirubin 0.4 AST 27 ALT 21 Alkaline Phosphatase 101 Total Protein 6.5 Albumin 3.2 L Syphilis Serology Non-reactive covid pending 06/17/20 14:49 06/17/20 14:49 renal insufficient Assessment: 06/17/20 14:50 alcohol withdrawal Plan: ativan regiment
[2020-06-17 18:53] LABS: PH,URINE 6.5 (5.0-8.0); URINE APPEARANCE CLEAR; URINE BILIRUBIN NEGATIVE (NEGATIVE); URINE COLOR YELLOW; URINE GLUCOSE (UA) NEGATIVE (NEGATIVE); URINE KETONE TRACE (NEGATIVE); URINE LEUK ESTERASE NEGATIVE (NEGATIVE); URINE NITRITE NEGATIVE (NEGATIVE); URINE PROTEIN NEGATIVE (NEGATIVE)
[2020-06-17] MEDS: MELATONIN 5 MG TABLETS PO PRN (22:00)
[2020-06-17] MEDS: THIAMINE HCL 100 MG TABLET (FP) PO SCH (23:00)
[2020-06-18] MEDS: LORazepam 1 MG TABLET PO SCH ×4 (05:41→22:15)
[2020-06-18] MEDS: PRENATAL VITAMINS W/ FOLIC ACID TABLET (FP) PO SCH (10:34)
--- NOTE | 2020-06-18 12:35 | PN ---
S CIWA - CIWA Score Nausea/Vomitin-Mild Nausea/No Vomiting Muscle Tremors: 2 Anxiety: 2 Agitation: 0-Normal Activity Paroxysmal Sweats: 1-Minimal Palms Moist Orientation: 0-Oriented Tacttile Disturbances: 0-None Auditory Disturbances: 0-None Visual Disturbances: 0-None Headache: 0-None Present CIWA-Ar Total Score: 6 BHS Progress Note (SOAP) Subjective: 50 years old male was admitted on 06/16/20 for alcohol withdrawal sx management treating with ativan detox regiment feels better today tolerate food well ambulating on hallway social with peers in day room mr kenyon determines to maintain sober Objective: 06/18/20 12:39 Vital Signs - 24 hr 06/17/20 06/17/20 06/17/20 13:09 16:34 20:58 Temperature 97.3 F L 97.3 F L 98.0 F Pulse Rate 109 H 80 102 H Respiratory 16 16 18 Rate Blood Pressure 105/77 104/72 104/63 O2 Sat by Pulse 99 96 Oximetry (%) 06/18/20 06/18/20 06:48 08:56 Temperature 97.5 F L 96.9 F L Pulse Rate 83 116 H Respiratory 18 20 Rate Blood Pressure 115/68 118/83 O2 Sat by Pulse 99 Oximetry (%) Laboratory Tests 06/16/20 06/17/20 06/17/20 22:59 07:20 07:20 WBC RBC Hgb Hct MCV MCH MCHC RDW Plt Count MPV Sodium 143 Potassium 3.9 Chloride 110 H Carbon Dioxide 27 Anion Gap 7 L BUN 25.0 H Creatinine 1.6 H Est GFR (CKD-EPI)AfAm 56.57 Est GFR (CKD-EPI)NonAf 48.81 Random Glucose 73 L Calcium 8.7 Total Bilirubin 0.4 AST 27 ALT 21 Alkaline Phosphatase 101 Total Protein 6.5 Albumin 3.2 L Urine Color Urine Appearance Urine pH Ur Specific [place] Urine Protein Urine Glucose (UA) Urine Ketones Urine Blood Urine Nitrite Urine Bilirubin Urine Urobilinogen Ur Leukocyte Esterase Syphilis Serology Non-reactive COVID-19 (DIPIKA) Not detected 06/17/20 06/17/20 07:30 15:20 WBC 2.9 L RBC 3.74 L Hgb 12.8 Hct 38.6 MCV 103.1 H MCH 34.1 H MCHC 33.0 RDW 13.3 Plt Count 136 MPV 7.6 Sodium Potassium Chloride Carbon Dioxide Anion Gap BUN Creatinine Est GFR (CKD-EPI)AfAm Est GFR (CKD-EPI)NonAf Random Glucose Calcium Total Bilirubin AST ALT Alkaline Phosphatase Total Protein Albumin Urine Color Yellow Urine Appearance Clear Urine pH 6.5 Ur Specific [place] 1.023 Urine Protein Negative Urine Glucose (UA) Negative Urine Ketones Trace H Urine Blood Negative Urine Nitrite Negative Urine Bilirubin Negative Urine Urobilinogen 1.0 Ur Leukocyte Esterase Negative Syphilis Serology COVID-19 (IDPIKA) 06/18/20 12:42 chronic leukocytopenia 06/18/20 12:46 asymptomatic Assessment: 06/18/20 12:46 alcohol withdrawal Plan: ativan regiment
[2020-06-18 21:48] VITALS: BP 112/69; PULSE 81; TEMP 97.7
[2020-06-18] MEDS: MELATONIN 5 MG TABLETS PO PRN (22:14)
[2020-06-18] MEDS: THIAMINE HCL 100 MG TABLET (FP) PO SCH (22:14)
[2020-06-19] MEDS ORDERED: LORazepam 0.5 MG TABLET PO PRN
[2020-06-19] MEDS ORDERED: LORazepam 0.5 MG TABLET PO SCH (05:00)
--- NOTE | 2020-06-19 06:10 | DS ---
[facility] Detox Discharge Summary Admission Date: 06/16/20 Discharge Date: 06/19/20 - History Additional Comments: Patient is being discharged to home. He is alert and oriented x 3, ambulates independently, not in acute distress and vital signs stable. He is medically stable to be discharged at this time. He reports that he has no home medications and does not need any prescription to be filled. Patient encouraged to follow with his primary physician for further evaluation of his medical needs. Pertinent Past History: Alcohol dependence Cannabis dependence Cocaine dependence Leukocytopenia Renal Insufficiency Substance induced sleep disorder Depression Weight loss - Physical Exam Results Vital Signs: Vital Signs Temperature 97.7 F 06/18/20 20:54 Pulse Rate 81 06/18/20 20:54 Respiratory Rate 16 06/18/20 20:54 Blood Pressure 112/69 06/18/20 20:54 O2 Sat by Pulse Oximetry (%) 98 06/18/20 20:54 Laboratory Last Values WBC 2.9 K/mm3 (4.0-10.0) L 06/17/20 07:30 RBC 3.74 M/mm3 (4.00-5.60) L 06/17/20 07:30 Hgb 12.8 GM/dL (11.7-16.9) 06/17/20 07:30 Hct 38.6 % (35.4-49) 06/17/20 07:30 MCV 103.1 fl (80-96) H 06/17/20 07:30 MCH 34.1 pg (25.7-33.7) H 06/17/20 07:30 MCHC 33.0 g/dl (32.0-35.9) 06/17/20 07:30 RDW 13.3 % (11.9-15.9) 06/17/20 07:30 Plt Count 136 K/MM3 (134-434) 06/17/20 07:30 MPV 7.6 fl (7.5-11.1) 06/17/20 07:30 Sodium 143 mmol/L (136-145) 06/17/20 07:20 Potassium 3.9 mmol/L (3.5-5.1) 06/17/20 07:20 Chloride 110 mmol/L (98-107) H 06/17/20 07:20 Carbon Dioxide 27 mmol/L (21-32) 06/17/20 07:20 Anion Gap 7 MMOL/L (8-16) L 06/17/20 07:20 BUN 25.0 mg/dL (7-18) H 06/17/20 07:20 Creatinine 1.6 mg/dL (0.55-1.3) H 06/17/20 07:20 Est GFR (CKD-EPI)AfAm 56.57 06/17/20 07:20 Est GFR (CKD-EPI)NonAf 48.81 06/17/20 07:20 Random Glucose 73 mg/dL (74-106) L 06/17/20 07:20 Calcium 8.7 mg/dL (8.5-10.1) 06/17/20 07:20 Total Bilirubin 0.4 mg/dL (0.2-1) 06/17/20 07:20 AST 27 U/L (15-37) 06/17/20 07:20 ALT 21 U/L (13-61) 06/17/20 07:20 Alkaline Phosphatase 101 U/L (45-117) 06/17/20 07:20 Total Protein 6.5 g/dl (6.4-8.2) 06/17/20 07:20 Albumin 3.2 g/dl (3.4-5.0) L 06/17/20 07:20 Urine Color Yellow 06/17/20 15:20 Urine Appearance Clear 06/17/20 15:20 Urine pH 6.5 (5.0-8.0) 06/17/20 15:20 Ur Specific [place] 1.023 (1.010-1.035) 06/17/20 15:20 Urine Protein Negative (NEGATIVE) 06/17/20 15:20 Urine Glucose (UA) Negative (NEGATIVE) 06/17/20 15:20 Urine Ketones Trace (NEGATIVE) H 06/17/20 15:20 Urine Blood Negative (NEGATIVE) 06/17/20 15:20 Urine Nitrite Negative (NEGATIVE) 06/17/20 15:20 Urine Bilirubin Negative (NEGATIVE) 06/17/20 15:20 Urine Urobilinogen 1.0 mg/dL (0.2-1.0) 06/17/20 15:20 Ur Leukocyte Esterase Negative (NEGATIVE) 06/17/20 15:20 Syphilis Serology Non-reactive (NONREACTIVE) 06/17/20 07:20 COVID-19 (DIPIKA) Not detected (Not Detected) 06/16/20 22:59 Pertinent Admission Physical Exam Findings: Alcohol withdrawal symptoms - Treatment Hospital Course: Detoxed Safely, Responded well, Discharged Condition Good - Medication Discharge Medications: Ambulatory Orders NK [No Known Home Medication] 02/01/18 - Diagnosis (1) Alcohol dependence with withdrawal Status: Chronic Qualifiers: Complication of substance-induced condition: uncomplicated Qualified Code(s): F10.230 - Alcohol dependence with withdrawal, uncomplicated (2) At risk for dehydration due to poor fluid intake Status: Chronic (3) Cannabis dependence Status: Chronic (4) Cocaine dependence Status: Chronic Qualifiers: Substance use status: uncomplicated Qualified Code(s): F14.20 - Cocaine dependence, uncomplicated (5) Leukocytopenia Status: Chronic Qualifiers: Leukopenia type: unspecified Qualified Code(s): D72.819 - Decreased white b lood cell count, unspecified (6) Renal insufficiency Status: Chronic (7) Substance-induced sleep disorder Status: Chronic (8) Depression Status: Chronic Qualifiers: Depression Type: unspecified Qualified Code(s): F32.9 - Major depressive disorder, single episode, unspecified (9) Weight loss Status: Chronic - AMA Did Patient Leave Against Medical Advice: No
[2020-06-20] MEDS ORDERED: LORazepam 0.5 MG TABLET PO ONE (05:00)
== END 2020-06-19 04:48 | disposition home or self-care (01) | DRG 774 ==
LOC: YASAS 19:23 → Y3N 22:21
PROVIDERS: ADMIT Allergy & Immunology; ATTEND Allergy & Immunology
PROC: HZ2ZZZZ Detoxification Services for Substance Abuse Treatment (ICD-10-PCS; principal; 2020-06-16)
DX: F10.230 Alcohol dependence with withdrawal, uncomplicated (principal); F14.20 Cocaine dependence, uncomplicated; F12.20 Cannabis dependence, uncomplicated; F19.24 Other psychoactive substance dependence with psychoactive substance-induced mood disorder; F19.282 Other psychoactive substance dependence with psychoactive substance-induced sleep disorder; F32.9 Major depressive disorder, single episode, unspecified; D72.819 Decreased white blood cell count, unspecified; N28.9 Disorder of kidney and ureter, unspecified; R63.8 Other symptoms and signs concerning food and fluid intake; Z63.4 Disappearance and death of family member; Z68.1 Body mass index [BMI] 19.9 or less, adult; Z56.0 Unemployment, unspecified; Z59.0 Homelessness
CPT/HCPCS: 36415; 80053; 81003; 85027; 86780; 93005; 93010; U0003

== ENCOUNTER 2022-02-20 08:51 | Inpatient (IN) | payer OTHER ==
[2022-02-20 09:30] VITALS: BMI 18.2
[2022-02-20] MEDS ORDERED: IBUPROFEN 400 MG TABLET (FP) PO PRN (10:32)
[2022-02-20] MEDS ORDERED: BENZOCAINE/MENTHOL (CHLORASEPTIC ) LOZENGE MM PRN (10:32)
[2022-02-20] MEDS ORDERED: LOPERAMIDE HCL 2 MG CAPSULE PO PRN (10:32)
[2022-02-20] MEDS ORDERED: METHOCARBAMOL 500 MG TABLET PO PRN (10:32)
[2022-02-20] MEDS ORDERED: ACETAMINOPHEN 325 MG TABLET (FP) PO PRN ×2 (10:32)
[2022-02-20] MEDS ORDERED: DICYCLOMINE HCL 10 MG CAPSULE PO PRN (10:32)
[2022-02-20] MEDS ORDERED: MAG HYDROX/AL HYDROX/SIMETH 30 ML UNIT-DOSE CUP PO PRN (10:32)
[2022-02-20] MEDS ORDERED: BISMUTH SUBSALICYLATE 262 MG/15 ML BTL PO PRN (10:32)
[2022-02-20] MEDS ORDERED: ONDANSETRON *ODT* 4 MG TABLET SL PRN (10:32)
[2022-02-20] MEDS ORDERED: MAGNESIUM CITRATE 300 ML BOTTLE PO PRN (10:32)
[2022-02-20] MEDS ORDERED: MAGNESIUM HYDROX 2400MG/30ML ORAL SUSPENSION 30 ML CUP PO PRN (10:32)
[2022-02-20] MEDS: PRENATAL VITAMINS W/ FOLIC ACID TABLET (FP) PO SCH (13:54)
[2022-02-20] MEDS: hydrOXYzine PAMOATE 25 MG CAPSULE (FP) PO SCH ×3 (13:54→23:25)
[2022-02-20] MEDS ORDERED: chlordiazePOXIDE HCL 25 MG CAPSULE PO PRN (22:44)
[2022-02-20] MEDS: MELATONIN 5 MG TABLETS PO SCH (23:24)
[2022-02-20] MEDS: THIAMINE HCL 100 MG TABLET (FP) PO SCH (23:25)
[2022-02-20] MEDS: chlordiazePOXIDE HCL 25 MG CAPSULE PO SCH (23:25)
[2022-02-21] MEDS: chlordiazePOXIDE HCL 25 MG CAPSULE PO SCH ×4 (05:41→22:14)
[2022-02-21] MEDS: hydrOXYzine PAMOATE 25 MG CAPSULE (FP) PO SCH ×5 (05:42→22:14)
[2022-02-21 10:00] LABS: HEMATOCRIT 39.6 % (35.4-49); HEMOGLOBIN 13.1 GM/dL (11.7-16.9); MCH 32.6 pg (25.7-33.7); MCHC 33.1 g/dl (32.0-35.9); MEAN CELL VOLUME 98.4 fl (80-96); MEAN PLT VOLUME 7.2 fl (7.5-11.1); PLATELET COUNT 203 10^3/uL (134-434); RBC 4.02 M/mm3 (4.00-5.60); RDW 14.2 % (11.9-15.9)
[2022-02-21 10:11] LABS: WHITE BLOOD COUNT 1.7 K/mm3 (4.0-10.0)
[2022-02-21] MEDS: PRENATAL VITAMINS W/ FOLIC ACID TABLET (FP) PO SCH (10:21)
[2022-02-21 10:27] LABS: ALBUMIN 3.6 g/dl (3.4-5.0); BLOOD UREA NITROGEN 21.1 mg/dL (7-18); CALCIUM 9.5 mg/dL (8.5-10.1)
[2022-02-21 10:29] LABS: CREATININE 1.6 mg/dL (0.55-1.3)
[2022-02-21 10:31] LABS: BILIRUBIN,TOTAL 0.4 mg/dL (0.2-1)
[2022-02-21] MEDS: MELATONIN 5 MG TABLETS PO SCH (22:14)
[2022-02-21] MEDS: THIAMINE HCL 100 MG TABLET (FP) PO SCH (22:14)
[2022-02-22] MEDS: hydrOXYzine PAMOATE 25 MG CAPSULE (FP) PO SCH ×2 (05:52→10:11)
[2022-02-22] MEDS: chlordiazePOXIDE HCL 25 MG CAPSULE PO SCH ×2 (05:52→10:10)
[2022-02-22 09:10] VITALS: BP 117/85; PULSE 90; TEMP 97.7
[2022-02-22] MEDS: PRENATAL VITAMINS W/ FOLIC ACID TABLET (FP) PO SCH (10:11)
[2022-02-22 14:10] LABS: SARS-CoV-2 NAA Not Detected (Not Detected)
[2022-02-23] MEDS ORDERED: chlordiazePOXIDE HCL 10 MG CAPSULE PO PRN
[2022-02-23] MEDS ORDERED: chlordiazePOXIDE HCL 10 MG CAPSULE PO SCH (05:00)
[2022-02-24] MEDS ORDERED: chlordiazePOXIDE HCL 10 MG CAPSULE PO SCH (05:00)
[2022-02-25] MEDS ORDERED: chlordiazePOXIDE HCL 10 MG CAPSULE PO ONE (05:00)
== END 2022-02-22 11:40 | disposition left against medical advice (07) | DRG 770 ==
LOC: YASAS 08:51 → Y3N 11:42
PROVIDERS: ADMIT Allergy & Immunology; ATTEND Surgery
PROC: HZ2ZZZZ Detoxification Services for Substance Abuse Treatment (ICD-10-PCS; principal; 2022-02-20)
DX: F10.230 Alcohol dependence with withdrawal, uncomplicated (principal); F14.20 Cocaine dependence, uncomplicated; F12.20 Cannabis dependence, uncomplicated; D72.819 Decreased white blood cell count, unspecified; R79.89 Other specified abnormal findings of blood chemistry
CPT/HCPCS: 36415; 80053; 85027; 86780; 93005; 93010; C9803-CS; U0003; U0005

== ENCOUNTER 2022-05-25 09:44 | Inpatient (IN) | payer OTHER ==
[2022-05-25 11:56] VITALS: BMI 19.0
[2022-05-25] MEDS ORDERED: MAGNESIUM CITRATE 300 ML BOTTLE PO PRN (13:19)
[2022-05-25] MEDS ORDERED: MAGNESIUM HYDROX 2400MG/30ML ORAL SUSPENSION 30 ML CUP PO PRN (13:19)
[2022-05-25] MEDS ORDERED: BENZOCAINE/MENTHOL (CHLORASEPTIC ) LOZENGE MM PRN (13:19)
[2022-05-25] MEDS ORDERED: BISMUTH SUBSALICYLATE 524 MG/30 ML PO PRN (13:19)
[2022-05-25] MEDS ORDERED: IBUPROFEN 600 MG TABLET (FP) PO PRN (13:19)
[2022-05-25] MEDS ORDERED: MAG HYDROX/AL HYDROX/SIMETH 30 ML UNIT-DOSE CUP PO PRN (13:19)
[2022-05-25] MEDS ORDERED: DICYCLOMINE HCL 10 MG CAPSULE PO PRN (13:19)
[2022-05-25] MEDS ORDERED: LOPERAMIDE HCL 2 MG CAPSULE PO PRN (13:19)
[2022-05-25] MEDS ORDERED: ONDANSETRON *ODT* 4 MG TABLET SL PRN (13:19)
[2022-05-25] MEDS ORDERED: ACETAMINOPHEN 325 MG TABLET (FP) PO PRN ×2 (13:19)
[2022-05-25] MEDS ORDERED: IBUPROFEN 400 MG TABLET (FP) PO PRN (13:19)
[2022-05-25] MEDS: diazePAM 5 MG TABLET PO PRN (14:26)
[2022-05-25] MEDS: hydrOXYzine PAMOATE 25 MG CAPSULE (FP) PO SCH ×3 (14:27→22:06)
[2022-05-25] MEDS: diazePAM 5 MG TABLET PO SCH ×2 (18:38→22:05)
[2022-05-25] MEDS: THIAMINE HCL 100 MG TABLET (FP) PO SCH (22:06)
[2022-05-25] MEDS: MELATONIN 5 MG TABLETS PO SCH (22:07)
[2022-05-26] MEDS: hydrOXYzine PAMOATE 25 MG CAPSULE (FP) PO SCH ×5 (05:28→22:06)
[2022-05-26] MEDS: diazePAM 5 MG TABLET PO SCH ×4 (05:28→22:05)
[2022-05-26 10:27] LABS: HEMATOCRIT 40.8 % (35.4-49); HEMOGLOBIN 13.5 GM/dL (11.7-16.9); MCH 33.2 pg (25.7-33.7); MCHC 33.1 g/dl (32.0-35.9); MEAN CELL VOLUME 100.2 fl (80-96); MEAN PLT VOLUME 7.4 fl (7.5-11.1); PLATELET COUNT 158 10^3/uL (134-434); RBC 4.07 M/mm3 (4.00-5.60); RDW 14.5 % (11.9-15.9); WHITE BLOOD COUNT 2.5 K/mm3 (4.0-10.0)
[2022-05-26] MEDS: PRENATAL VITAMINS W/ FOLIC ACID TABLET (FP) PO SCH (10:45)
[2022-05-26] MEDS: METHOCARBAMOL 500 MG TABLET PO PRN (10:46)
[2022-05-26 11:00] LABS: ALBUMIN 3.3 g/dl (3.4-5.0); BLOOD UREA NITROGEN 15.4 mg/dL (7-18); CALCIUM 8.9 mg/dL (8.5-10.1)
[2022-05-26 11:03] LABS: CREATININE 1.5 mg/dL (0.55-1.3)
[2022-05-26 11:05] LABS: BILIRUBIN,TOTAL 0.5 mg/dL (0.2-1); TOT PROT 6.6 g/dl (6.4-8.2)
[2022-05-26] MEDS: THIAMINE HCL 100 MG TABLET (FP) PO SCH (22:05)
[2022-05-26] MEDS: MELATONIN 5 MG TABLETS PO SCH (22:06)
[2022-05-27] MEDS: diazePAM 5 MG TABLET PO SCH ×3 (05:33→22:10)
[2022-05-27] MEDS: hydrOXYzine PAMOATE 25 MG CAPSULE (FP) PO SCH ×5 (05:33→22:10)
[2022-05-27] MEDS: METHOCARBAMOL 500 MG TABLET PO PRN (10:35)
[2022-05-27] MEDS: PRENATAL VITAMINS W/ FOLIC ACID TABLET (FP) PO SCH (10:36)
[2022-05-27] MEDS: diazePAM 5 MG TABLET PO PRN (10:36)
[2022-05-27] MEDS: MELATONIN 5 MG TABLETS PO SCH (22:10)
[2022-05-27] MEDS: THIAMINE HCL 100 MG TABLET (FP) PO SCH (22:10)
[2022-05-28] MEDS ORDERED: diazePAM 5 MG TABLET PO SCH (06:00)
[2022-05-28 06:55] VITALS: RESP 18
[2022-05-28] MEDS: hydrOXYzine PAMOATE 25 MG CAPSULE (FP) PO SCH ×2 (07:07→10:07)
[2022-05-28 09:15] VITALS: BP 138/91; PULSE 94; TEMP 97.6
[2022-05-28] MEDS: PRENATAL VITAMINS W/ FOLIC ACID TABLET (FP) PO SCH (10:06)
[2022-05-28] MEDS: METHOCARBAMOL 500 MG TABLET PO PRN (10:07)
[2022-05-29] MEDS ORDERED: diazePAM 5 MG TABLET PO ONE (06:00)
== END 2022-05-28 12:35 | disposition home or self-care (01) | DRG 774 ==
LOC: YASAS 09:44 → Y6N 13:19
PROVIDERS: ADMIT Allergy & Immunology; ATTEND Surgery
PROC: HZ2ZZZZ Detoxification Services for Substance Abuse Treatment (ICD-10-PCS; principal; 2022-05-25)
DX: F10.230 Alcohol dependence with withdrawal, uncomplicated (principal); F14.20 Cocaine dependence, uncomplicated; F12.20 Cannabis dependence, uncomplicated; D72.810 Lymphocytopenia; R63.4 Abnormal weight loss; Z68.1 Body mass index [BMI] 19.9 or less, adult; Z59.01 Sheltered homelessness; Z56.0 Unemployment, unspecified
CPT/HCPCS: 36415; 80053; 85027; 86780; C9803-CS; U0003; U0005

== ENCOUNTER 2022-05-31 12:57 | Inpatient (IN) | payer OTHER ==
[2022-05-31 14:12] VITALS: BMI 17.9
[2022-05-31] MEDS ORDERED: BISMUTH SUBSALICYLATE 524 MG/30 ML PO PRN (15:39)
[2022-05-31] MEDS ORDERED: LOPERAMIDE HCL 2 MG CAPSULE PO PRN (15:39)
[2022-05-31] MEDS ORDERED: NICOTINE 10 MG CARTRIDGE (INHALER) IH PRN (15:39)
[2022-05-31] MEDS ORDERED: IBUPROFEN 600 MG TABLET (FP) PO PRN (15:39)
[2022-05-31] MEDS ORDERED: MAG HYDROX/AL HYDROX/SIMETH 30 ML UNIT-DOSE CUP PO PRN (15:39)
[2022-05-31] MEDS ORDERED: BENZOCAINE/MENTHOL (CHLORASEPTIC ) LOZENGE MM PRN (15:39)
[2022-05-31] MEDS ORDERED: DICYCLOMINE HCL 10 MG CAPSULE PO PRN (15:39)
[2022-05-31] MEDS ORDERED: ONDANSETRON *ODT* 4 MG TABLET SL PRN (15:39)
[2022-05-31] MEDS ORDERED: METHOCARBAMOL 500 MG TABLET PO PRN (15:39)
[2022-05-31] MEDS ORDERED: MAGNESIUM HYDROX 2400MG/30ML ORAL SUSPENSION 30 ML CUP PO PRN (15:39)
[2022-05-31] MEDS ORDERED: IBUPROFEN 400 MG TABLET (FP) PO PRN (15:39)
[2022-05-31] MEDS ORDERED: MAGNESIUM CITRATE 300 ML BOTTLE PO PRN (15:39)
[2022-05-31] MEDS ORDERED: ACETAMINOPHEN 325 MG TABLET (FP) PO PRN ×2 (15:39)
[2022-05-31] MEDS: diazePAM 5 MG TABLET PO SCH ×2 (17:25→22:18)
[2022-05-31] MEDS: hydrOXYzine PAMOATE 25 MG CAPSULE (FP) PO SCH ×2 (17:26→22:18)
[2022-05-31] MEDS: THIAMINE HCL 100 MG TABLET (FP) PO SCH (22:18)
[2022-05-31] MEDS: MELATONIN 5 MG TABLETS PO SCH (22:18)
[2022-06-01] MEDS: diazePAM 5 MG TABLET PO SCH ×4 (05:01→22:01)
[2022-06-01] MEDS: hydrOXYzine PAMOATE 25 MG CAPSULE (FP) PO SCH ×5 (05:01→22:01)
[2022-06-01] MEDS: PRENATAL VITAMINS W/ FOLIC ACID TABLET (FP) PO SCH (10:23)
[2022-06-01] MEDS: diazePAM 5 MG TABLET PO PRN (14:26)
[2022-06-01 14:30] LABS: HEMOGLOBIN 12.7 GM/dL (11.7-16.9); MCH 33.2 pg (25.7-33.7); MCHC 33.4 g/dl (32.0-35.9); MEAN CELL VOLUME 99.4 fl (80-96); MEAN PLT VOLUME 7.1 fl (7.5-11.1); PLATELET COUNT 144 10^3/uL (134-434); RBC 3.82 M/mm3 (4.00-5.60); RDW 13.9 % (11.9-15.9)
[2022-06-01 14:41] LABS: CALCIUM 8.7 mg/dL (8.5-10.1)
[2022-06-01 14:42] LABS: ALBUMIN 3.1 g/dl (3.4-5.0); BLOOD UREA NITROGEN 17.1 mg/dL (7-18)
[2022-06-01 14:45] LABS: CREATININE 1.6 mg/dL (0.55-1.3)
[2022-06-01 14:46] LABS: BILIRUBIN,TOTAL 0.4 mg/dL (0.2-1); TOT PROT 6.4 g/dl (6.4-8.2)
[2022-06-01] MEDS: MELATONIN 5 MG TABLETS PO SCH (22:00)
[2022-06-01] MEDS: THIAMINE HCL 100 MG TABLET (FP) PO SCH (22:01)
[2022-06-02] MEDS: hydrOXYzine PAMOATE 25 MG CAPSULE (FP) PO SCH ×4 (05:18→17:40)
[2022-06-02] MEDS: diazePAM 5 MG TABLET PO SCH ×2 (05:18→13:08)
[2022-06-02] MEDS: diazePAM 5 MG TABLET PO PRN ×2 (09:52→17:40)
[2022-06-02] MEDS: PRENATAL VITAMINS W/ FOLIC ACID TABLET (FP) PO SCH (09:52)
[2022-06-02 13:12] VITALS: TEMP 97.8
[2022-06-02 17:05] VITALS: BP 117/70; PULSE 86; RESP 16
[2022-06-03] MEDS ORDERED: diazePAM 5 MG TABLET PO SCH (06:00)
[2022-06-04] MEDS ORDERED: diazePAM 5 MG TABLET PO ONE (06:00)
== END 2022-06-02 20:00 | disposition other institution (70) | DRG 774 ==
LOC: YASAS 12:57 → Y6N 15:41
PROVIDERS: ADMIT Allergy & Immunology; ATTEND Surgery
PROC: HZ2ZZZZ Detoxification Services for Substance Abuse Treatment (ICD-10-PCS; principal; 2022-05-31)
DX: F10.230 Alcohol dependence with withdrawal, uncomplicated (principal); F14.20 Cocaine dependence, uncomplicated; F12.20 Cannabis dependence, uncomplicated; D72.810 Lymphocytopenia; R63.4 Abnormal weight loss; Z68.1 Body mass index [BMI] 19.9 or less, adult; Z59.01 Sheltered homelessness
CPT/HCPCS: 36415; 80053; 85027; 86780; 87811; C9803-CS; U0003; U0005

== ENCOUNTER 2022-06-02 20:24 | Inpatient (IN) | payer OTHER ==
[2022-06-02] MEDS ORDERED: guaiFENesin 200 MG/10 ML 10 ML UNIT-DOSE CUPS PO PRN (23:54)
[2022-06-02] MEDS ORDERED: LOPERAMIDE HCL 2 MG CAPSULE PO PRN (23:54)
[2022-06-02] MEDS ORDERED: MAGNESIUM HYDROX 2400MG/30ML ORAL SUSPENSION 30 ML CUP PO PRN (23:54)
[2022-06-02] MEDS ORDERED: BENZOCAINE/MENTHOL (CHLORASEPTIC ) LOZENGE MM PRN (23:54)
[2022-06-02] MEDS ORDERED: ACETAMINOPHEN 325 MG TABLET (FP) PO PRN (23:54)
[2022-06-02] MEDS ORDERED: P-EPHED 60MG/TRIPROLIDI 2.5MG TABLET PO PRN (23:54)
[2022-06-02] MEDS ORDERED: MAG HYDROX/AL HYDROX/SIMETH 30 ML UNIT-DOSE CUP PO PRN (23:54)
[2022-06-02] MEDS ORDERED: MAGNESIUM CITRATE 300 ML BOTTLE PO PRN (23:54)
[2022-06-02] MEDS ORDERED: IBUPROFEN 400 MG TABLET (FP) PO PRN (23:54)
[2022-06-03] MEDS: MELATONIN 5 MG TABLETS PO SCH ×2 (00:25→21:33)
[2022-06-03] MEDS: PRENATAL VITAMINS W/ FOLIC ACID TABLET (FP) PO SCH (09:34)
[2022-06-03] MEDS: THIAMINE HCL 100 MG TABLET (FP) PO SCH (21:33)
[2022-06-04] MEDS: PRENATAL VITAMINS W/ FOLIC ACID TABLET (FP) PO SCH (10:25)
[2022-06-04] MEDS: THIAMINE HCL 100 MG TABLET (FP) PO SCH (21:12)
[2022-06-04] MEDS: MELATONIN 5 MG TABLETS PO SCH (21:12)
[2022-06-05] MEDS: PRENATAL VITAMINS W/ FOLIC ACID TABLET (FP) PO SCH (10:04)
[2022-06-05] MEDS: MELATONIN 5 MG TABLETS PO SCH (21:45)
[2022-06-05] MEDS: THIAMINE HCL 100 MG TABLET (FP) PO SCH (21:45)
[2022-06-05] MEDS: hydrOXYzine PAMOATE 25 MG CAPSULE (FP) PO PRN (21:46)
[2022-06-06] MEDS: PRENATAL VITAMINS W/ FOLIC ACID TABLET (FP) PO SCH (10:05)
[2022-06-06] MEDS ORDERED: QUEtiapine FUMARATE 50 MG TABLET PO PRN (11:51)
[2022-06-06] MEDS: THIAMINE HCL 100 MG TABLET (FP) PO SCH (21:24)
[2022-06-07 06:54] VITALS: RESP 18
[2022-06-07] MEDS: PRENATAL VITAMINS W/ FOLIC ACID TABLET (FP) PO SCH (10:07)
[2022-06-07] MEDS: THIAMINE HCL 100 MG TABLET (FP) PO SCH (21:16)
[2022-06-07] MEDS: QUEtiapine FUMARATE 50 MG TABLET PO PRN (21:17)
[2022-06-07] MEDS: hydrOXYzine PAMOATE 25 MG CAPSULE (FP) PO PRN (21:17)
[2022-06-08] MEDS: PRENATAL VITAMINS W/ FOLIC ACID TABLET (FP) PO SCH (10:00)
[2022-06-08] MEDS: QUEtiapine FUMARATE 50 MG TABLET PO PRN (21:18)
[2022-06-08] MEDS: hydrOXYzine PAMOATE 25 MG CAPSULE (FP) PO PRN (21:18)
[2022-06-08] MEDS: THIAMINE HCL 100 MG TABLET (FP) PO SCH (21:18)
[2022-06-09 07:09] VITALS: BP 134/93; PULSE 97; TEMP 98
== END 2022-06-09 10:00 | disposition home or self-care (01) | DRG 772 ==
LOC: YASAS 20:24 → Y3W 20:25
PROVIDERS: ADMIT Allergy & Immunology; ATTEND Psychiatry & Neurology Pain Medicine
PROC: HZ42ZZZ Group Counseling for Substance Abuse Treatment, Cognitive-Behavioral (ICD-10-PCS; principal; 2022-06-02)
DX: F10.20 Alcohol dependence, uncomplicated (principal); F14.20 Cocaine dependence, uncomplicated; F12.20 Cannabis dependence, uncomplicated; F19.282 Other psychoactive substance dependence with psychoactive substance-induced sleep disorder; F19.24 Other psychoactive substance dependence with psychoactive substance-induced mood disorder; F32.A Depression, unspecified; D72.819 Decreased white blood cell count, unspecified; R63.4 Abnormal weight loss; Z68.1 Body mass index [BMI] 19.9 or less, adult; Z59.00 Homelessness unspecified

== ENCOUNTER 2023-05-02 10:42 | Inpatient (IN) | payer OTHER ==
[2023-05-02 11:13] VITALS: BMI 18.6
[2023-05-02] MEDS ORDERED: DICYCLOMINE HCL 10 MG CAPSULE PO PRN (11:55)
[2023-05-02] MEDS ORDERED: BENZOCAINE/MENTHOL (CHLORASEPTIC ) LOZENGE MM PRN (11:55)
[2023-05-02] MEDS ORDERED: guaiFENesin 600 MG TABLET.ER (FP) PO PRN (11:55)
[2023-05-02] MEDS ORDERED: METHOCARBAMOL 500 MG TABLET PO PRN (11:55)
[2023-05-02] MEDS ORDERED: MAGNESIUM HYDROX 2400MG/30ML ORAL SUSPENSION 30 ML CUP PO PRN (11:55)
[2023-05-02] MEDS ORDERED: BISMUTH SUBSALICYLATE 524 MG/30 ML PO PRN (11:55)
[2023-05-02] MEDS ORDERED: LOPERAMIDE HCL 2 MG CAPSULE PO PRN (11:55)
[2023-05-02] MEDS ORDERED: MAG HYDROX/AL HYDROX/SIMETH 30 ML UNIT-DOSE CUP PO PRN (11:55)
[2023-05-02] MEDS ORDERED: BENZONATATE 200 MG CAPSULE PO PRN (11:55)
[2023-05-02] MEDS ORDERED: ACETAMINOPHEN 325 MG TABLET (FP) PO PRN (11:55)
[2023-05-02] MEDS ORDERED: IBUPROFEN 600 MG TABLET (FP) PO PRN (11:55)
[2023-05-02] MEDS ORDERED: ONDANSETRON *ODT* 4 MG TABLET SL PRN (11:55)
[2023-05-02] MEDS ORDERED: IBUPROFEN 400 MG TABLET (FP) PO PRN (11:55)
[2023-05-02] MEDS ORDERED: hydrOXYzine PAMOATE 25 MG CAPSULE (FP) PO PRN (11:55)
[2023-05-02] MEDS ORDERED: NALOXONE HCL 0.4 MG/ML VIAL IM PRN (11:55)
[2023-05-02] MEDS ORDERED: POLYETHYLENE GLYCOL (HEALTHYLAX) 3350 17 GM PACKET PO PRN (11:55)
[2023-05-02] MEDS ORDERED: NALOXONE HCL (KLOXXADO) 8 MG SPRAY NS PRN (11:55)
[2023-05-02] MEDS ORDERED: THIAMINE HCL 100 MG TABLET (FP) PO SCH (22:00)
[2023-05-02] MEDS ORDERED: MELATONIN 5 MG TABLETS PO SCH (22:00)
[2023-05-03 09:12] LABS: HEMATOCRIT 38.1 % (35.4-49); HEMOGLOBIN 12.4 GM/dL (11.7-16.9); MCHC 32.6 g/dl (32.0-35.9); MEAN CELL VOLUME 101.3 fl (80-96); MEAN PLT VOLUME 7.1 fl (7.5-11.1); PLATELET COUNT 161 10^3/uL (134-434); RBC 3.76 M/mm3 (4.00-5.60); RDW 13.8 % (11.9-15.9); WHITE BLOOD COUNT 2.7 K/mm3 (4.0-10.0)
[2023-05-03 09:14] LABS: POTASSIUM 4.3 mmol/L (3.5-5.1)
[2023-05-03 09:16] LABS: CALCIUM 8.6 mg/dL (8.5-10.1)
[2023-05-03 09:17] LABS: BLOOD UREA NITROGEN 14.4 mg/dL (7-18)
[2023-05-03 09:20] LABS: CREATININE 1.5 mg/dL (0.55-1.3)
[2023-05-03 09:21] LABS: BILIRUBIN,TOTAL 0.4 mg/dL (0.2-1); TOT PROT 6.1 g/dl (6.4-8.2)
[2023-05-03] MEDS ORDERED: PRENATAL VITAMINS W/ FOLIC ACID TABLET (FP) PO SCH (10:00)
[2023-05-03] MEDS ORDERED: QUEtiapine FUMARATE 50 MG TABLET PO PRN (10:44)
[2023-05-03 17:27] VITALS: BP 128/83; PULSE 65; RESP 17; TEMP 97.1
== END 2023-05-03 17:40 | disposition other institution (70) | DRG 774 ==
LOC: YASAS 10:42 → Y3N 12:32
PROVIDERS: ADMIT Allergy & Immunology; ATTEND Surgery
PROC: HZ2ZZZZ Detoxification Services for Substance Abuse Treatment (ICD-10-PCS; principal; 2023-05-02)
DX: F10.230 Alcohol dependence with withdrawal, uncomplicated (principal); F14.20 Cocaine dependence, uncomplicated; F12.20 Cannabis dependence, uncomplicated; F19.282 Other psychoactive substance dependence with psychoactive substance-induced sleep disorder; F19.24 Other psychoactive substance dependence with psychoactive substance-induced mood disorder; R63.4 Abnormal weight loss; Z68.1 Body mass index [BMI] 19.9 or less, adult; Z56.0 Unemployment, unspecified; Z59.01 Sheltered homelessness
CPT/HCPCS: 36415; 80053; 85027; 86780; 87635; 87811

== ENCOUNTER 2023-05-03 17:45 | Inpatient (IN) | payer OTHER ==
[2023-05-03] MEDS ORDERED: NALOXONE HCL 0.4 MG/ML VIAL IM PRN (18:16)
[2023-05-03] MEDS ORDERED: ACETAMINOPHEN 325 MG TABLET (FP) PO PRN (18:16)
[2023-05-03] MEDS ORDERED: hydrOXYzine PAMOATE 25 MG CAPSULE (FP) PO PRN (18:16)
[2023-05-03] MEDS ORDERED: LOPERAMIDE HCL 2 MG CAPSULE PO PRN (18:16)
[2023-05-03] MEDS ORDERED: BENZOCAINE/MENTHOL (CHLORASEPTIC ) LOZENGE MM PRN (18:16)
[2023-05-03] MEDS ORDERED: COLLOIDAL OATMEAL 1 BAR EACH TP PRN (18:16)
[2023-05-03] MEDS ORDERED: MAG HYDROX/AL HYDROX/SIMETH 30 ML UNIT-DOSE CUP PO PRN (18:16)
[2023-05-03] MEDS ORDERED: IBUPROFEN 400 MG TABLET (FP) PO PRN (18:16)
[2023-05-03] MEDS ORDERED: BENZONATATE 200 MG CAPSULE PO PRN (18:16)
[2023-05-03] MEDS ORDERED: MAGNESIUM HYDROX 2400MG/30ML ORAL SUSPENSION 30 ML CUP PO PRN (18:16)
[2023-05-03] MEDS ORDERED: POLYETHYLENE GLYCOL (HEALTHYLAX) 3350 17 GM PACKET PO PRN (18:16)
[2023-05-03] MEDS ORDERED: IBUPROFEN 600 MG TABLET (FP) PO PRN (18:16)
[2023-05-03] MEDS ORDERED: AMMONIUM LACTATE 12% LOTION 225 GM BOTTLE TP PRN (18:16)
[2023-05-03] MEDS ORDERED: NALOXONE HCL (KLOXXADO) 8 MG SPRAY NS PRN (18:16)
[2023-05-03] MEDS ORDERED: guaiFENesin 600 MG TABLET.ER (FP) PO PRN (18:16)
[2023-05-03] MEDS: THIAMINE HCL 100 MG TABLET (FP) PO SCH (21:33)
[2023-05-03] MEDS: MELATONIN 5 MG TABLETS PO SCH (21:33)
[2023-05-03] MEDS: QUEtiapine FUMARATE 50 MG TABLET PO PRN (22:01)
[2023-05-03 23:00] LABS: PH,URINE 6.5 (5.0-8.0); URINE APPEARANCE CLEAR; URINE BILIRUBIN NEGATIVE (NEGATIVE); URINE COLOR YELLOW; URINE GLUCOSE (UA) NEGATIVE (NEGATIVE); URINE KETONE NEGATIVE (NEGATIVE); URINE LEUK ESTERASE NEGATIVE (NEGATIVE); URINE NITRITE NEGATIVE (NEGATIVE); URINE PROTEIN NEGATIVE (NEGATIVE); URINE UROBILINOGEN 0.2 mg/dL (0.2-1.0)
[2023-05-04] MEDS: PRENATAL VITAMINS W/ FOLIC ACID TABLET (FP) PO SCH (10:01)
[2023-05-04] MEDS: THIAMINE HCL 100 MG TABLET (FP) PO SCH (21:20)
[2023-05-04] MEDS: QUEtiapine FUMARATE 50 MG TABLET PO PRN (21:20)
[2023-05-04] MEDS: MELATONIN 5 MG TABLETS PO SCH (21:20)
[2023-05-05] MEDS: PRENATAL VITAMINS W/ FOLIC ACID TABLET (FP) PO SCH (10:01)
[2023-05-05] MEDS: QUEtiapine FUMARATE 50 MG TABLET PO PRN (21:01)
[2023-05-05] MEDS: THIAMINE HCL 100 MG TABLET (FP) PO SCH (21:01)
[2023-05-05] MEDS: MELATONIN 5 MG TABLETS PO SCH (21:01)
[2023-05-06] MEDS: PRENATAL VITAMINS W/ FOLIC ACID TABLET (FP) PO SCH (09:50)
[2023-05-06] MEDS: THIAMINE HCL 100 MG TABLET (FP) PO SCH (21:06)
[2023-05-06] MEDS: QUEtiapine FUMARATE 50 MG TABLET PO PRN (21:06)
[2023-05-06] MEDS: MELATONIN 5 MG TABLETS PO SCH (21:06)
[2023-05-07] MEDS: PRENATAL VITAMINS W/ FOLIC ACID TABLET (FP) PO SCH (10:07)
[2023-05-07] MEDS: THIAMINE HCL 100 MG TABLET (FP) PO SCH (21:02)
[2023-05-07] MEDS: QUEtiapine FUMARATE 50 MG TABLET PO PRN (21:02)
[2023-05-07] MEDS: MELATONIN 5 MG TABLETS PO SCH (21:02)
[2023-05-08] MEDS: PRENATAL VITAMINS W/ FOLIC ACID TABLET (FP) PO SCH (10:20)
[2023-05-08] MEDS: MELATONIN 5 MG TABLETS PO SCH (21:05)
[2023-05-08] MEDS: THIAMINE HCL 100 MG TABLET (FP) PO SCH (21:05)
[2023-05-08] MEDS: QUEtiapine FUMARATE 50 MG TABLET PO PRN (21:05)
[2023-05-09] MEDS: MELATONIN 5 MG TABLETS PO SCH (21:03)
[2023-05-09] MEDS: THIAMINE HCL 100 MG TABLET (FP) PO SCH (21:03)
[2023-05-09] MEDS: QUEtiapine FUMARATE 50 MG TABLET PO PRN (21:03)
[2023-05-10] MEDS: THIAMINE HCL 100 MG TABLET (FP) PO SCH (21:02)
[2023-05-10] MEDS: QUEtiapine FUMARATE 50 MG TABLET PO PRN (21:02)
[2023-05-10] MEDS: MELATONIN 5 MG TABLETS PO SCH (21:02)
[2023-05-11] MEDS: MELATONIN 5 MG TABLETS PO SCH (21:03)
[2023-05-11] MEDS: THIAMINE HCL 100 MG TABLET (FP) PO SCH (21:04)
[2023-05-11] MEDS: QUEtiapine FUMARATE 100 MG TABLET (FP) PO PRN (21:04)
[2023-05-12 07:12] VITALS: RESP 18
[2023-05-12] MEDS: MELATONIN 5 MG TABLETS PO SCH (20:59)
[2023-05-12] MEDS: QUEtiapine FUMARATE 100 MG TABLET (FP) PO PRN (20:59)
[2023-05-12] MEDS: THIAMINE HCL 100 MG TABLET (FP) PO SCH (21:00)
[2023-05-13] MEDS: THIAMINE HCL 100 MG TABLET (FP) PO SCH (21:02)
[2023-05-13] MEDS: QUEtiapine FUMARATE 100 MG TABLET (FP) PO PRN (21:02)
[2023-05-13] MEDS: MELATONIN 5 MG TABLETS PO SCH (21:02)
[2023-05-14 07:08] VITALS: BP 131/95; PULSE 92; TEMP 97.3
== END 2023-05-14 09:00 | disposition home or self-care (01) | DRG 772 ==
LOC: YASAS 17:45 → Y5N 17:46
PROVIDERS: ADMIT Allergy & Immunology; ATTEND Psychiatry & Neurology Pain Medicine
PROC: HZ42ZZZ Group Counseling for Substance Abuse Treatment, Cognitive-Behavioral (ICD-10-PCS; principal; 2023-05-03)
DX: F14.20 Cocaine dependence, uncomplicated (principal); F12.20 Cannabis dependence, uncomplicated; F19.982 Other psychoactive substance use, unspecified with psychoactive substance-induced sleep disorder; F19.94 Other psychoactive substance use, unspecified with psychoactive substance-induced mood disorder; Z56.0 Unemployment, unspecified; Z59.01 Sheltered homelessness
CPT/HCPCS: 36415; 81003; 86803

== ENCOUNTER 2023-10-16 23:35 | Inpatient (IN) | payer OTHER ==
[2023-10-16 23:59] VITALS: BMI 19.2
[2023-10-17] MEDS ORDERED: BENZOCAINE/MENTHOL (CHLORASEPTIC ) LOZENGE MM PRN (00:59)
[2023-10-17] MEDS ORDERED: COLLOIDAL OATMEAL 1 BAR EACH TP PRN (00:59)
[2023-10-17] MEDS ORDERED: MAG HYDROX/AL HYDROX/SIMETH 30 ML UNIT-DOSE CUP PO PRN (00:59)
[2023-10-17] MEDS ORDERED: guaiFENesin 600 MG TABLET.ER (FP) PO PRN (00:59)
[2023-10-17] MEDS ORDERED: IBUPROFEN 600 MG TABLET (FP) PO PRN (00:59)
[2023-10-17] MEDS ORDERED: NALOXONE HCL 0.4 MG/ML VIAL IM PRN (00:59)
[2023-10-17] MEDS ORDERED: IBUPROFEN 400 MG TABLET (FP) PO PRN (00:59)
[2023-10-17] MEDS ORDERED: POLYETHYLENE GLYCOL (HEALTHYLAX) 3350 17 GM PACKET PO PRN (00:59)
[2023-10-17] MEDS ORDERED: LOPERAMIDE HCL 2 MG CAPSULE PO PRN (00:59)
[2023-10-17] MEDS ORDERED: MAGNESIUM HYDROX 2400MG/30ML ORAL SUSPENSION 30 ML CUP PO PRN (00:59)
[2023-10-17] MEDS ORDERED: NALOXONE HCL (KLOXXADO) 8 MG SPRAY NS PRN (00:59)
[2023-10-17] MEDS ORDERED: ACETAMINOPHEN 325 MG TABLET (FP) PO PRN (00:59)
[2023-10-17] MEDS ORDERED: hydrOXYzine PAMOATE 25 MG CAPSULE (FP) PO PRN (00:59)
[2023-10-17] MEDS ORDERED: BENZONATATE 200 MG CAPSULE PO PRN (00:59)
[2023-10-17] MEDS: PRENATAL VITAMINS W/ FOLIC ACID TABLET (FP) PO SCH (10:00)
[2023-10-17] MEDS: THIAMINE HCL 100 MG TABLET (FP) PO SCH (21:03)
[2023-10-17] MEDS: MELATONIN 5 MG TABLETS PO SCH (21:04)
[2023-10-17] MEDS: QUEtiapine FUMARATE 50 MG TABLET PO PRN (21:05)
[2023-10-18] MEDS: PRENATAL VITAMINS W/ FOLIC ACID TABLET (FP) PO SCH (09:16)
[2023-10-18 12:50] LABS: HEMATOCRIT 38.7 % (35.4-49); HEMOGLOBIN 12.9 GM/dL (11.7-16.9); MCH 33.4 pg (25.7-33.7); MCHC 33.3 g/dl (32.0-35.9); MEAN CELL VOLUME 100.3 fl (80-96); MEAN PLT VOLUME 8.1 fl (7.5-11.1); PLATELET COUNT 155 10^3/uL (134-434); POTASSIUM 4.1 mmol/L (3.5-5.1); RBC 3.85 M/mm3 (4.00-5.60); RDW 13.8 % (11.9-15.9); WHITE BLOOD COUNT 2.4 K/mm3 (4.0-10.0)
[2023-10-18 12:53] LABS: ALBUMIN 3.4 g/dl (3.4-5.0); BLOOD UREA NITROGEN 16.1 mg/dL (7-18)
[2023-10-18 12:56] LABS: CREATININE 1.5 mg/dL (0.55-1.3)
[2023-10-18 12:58] LABS: BILIRUBIN,TOTAL 0.5 mg/dL (0.2-1)
[2023-10-18 13:18] LABS: SYPHILIS W/ RPR CONF NON-REACTIVE (NONREACTIVE)
[2023-10-18] MEDS: MELATONIN 5 MG TABLETS PO SCH (21:25)
[2023-10-18] MEDS: QUEtiapine FUMARATE 50 MG TABLET PO PRN (21:25)
[2023-10-18] MEDS: THIAMINE HCL 100 MG TABLET (FP) PO SCH (21:25)
[2023-10-19] MEDS: PRENATAL VITAMINS W/ FOLIC ACID TABLET (FP) PO SCH (10:14)
[2023-10-19] MEDS ORDERED: PRENATAL VITAMINS W/ FOLIC ACID TABLET (FP) PO PRN (13:34)
[2023-10-19 14:41] LABS: PH,URINE 6.5 (5.0-8.0); URINE APPEARANCE CLEAR; URINE BILIRUBIN NEGATIVE (NEGATIVE); URINE COLOR YELLOW; URINE GLUCOSE (UA) NEGATIVE (NEGATIVE); URINE KETONE NEGATIVE (NEGATIVE); URINE LEUK ESTERASE NEGATIVE (NEGATIVE); URINE NITRITE NEGATIVE (NEGATIVE); URINE PROTEIN NEGATIVE (NEGATIVE); URINE UROBILINOGEN 0.2 mg/dL (0.2-1.0)
[2023-10-19] MEDS: MELATONIN 5 MG TABLETS PO SCH (21:05)
[2023-10-19] MEDS: THIAMINE HCL 100 MG TABLET (FP) PO SCH (21:05)
[2023-10-19] MEDS: QUEtiapine FUMARATE 50 MG TABLET PO PRN (21:06)
[2023-10-20] MEDS: MELATONIN 5 MG TABLETS PO SCH (21:22)
[2023-10-20] MEDS: THIAMINE HCL 100 MG TABLET (FP) PO SCH (21:23)
[2023-10-20] MEDS: QUEtiapine FUMARATE 50 MG TABLET PO PRN (21:23)
[2023-10-21] MEDS: THIAMINE HCL 100 MG TABLET (FP) PO SCH (21:09)
[2023-10-21] MEDS: MELATONIN 5 MG TABLETS PO SCH (21:09)
[2023-10-21] MEDS: QUEtiapine FUMARATE 50 MG TABLET PO PRN (21:10)
[2023-10-22] MEDS: QUEtiapine FUMARATE 50 MG TABLET PO PRN (21:02)
[2023-10-22] MEDS: MELATONIN 5 MG TABLETS PO SCH (21:02)
[2023-10-22] MEDS: THIAMINE HCL 100 MG TABLET (FP) PO SCH (21:02)
[2023-10-23] MEDS: MELATONIN 5 MG TABLETS PO SCH (21:10)
[2023-10-23] MEDS: THIAMINE HCL 100 MG TABLET (FP) PO SCH (21:10)
[2023-10-23] MEDS: QUEtiapine FUMARATE 100 MG TABLET (FP) PO SCH (21:11)
[2023-10-24] MEDS: QUEtiapine FUMARATE 100 MG TABLET (FP) PO SCH (21:07)
[2023-10-24] MEDS: THIAMINE HCL 100 MG TABLET (FP) PO SCH (21:07)
[2023-10-24] MEDS: MELATONIN 5 MG TABLETS PO SCH (21:07)
[2023-10-25] MEDS: THIAMINE HCL 100 MG TABLET (FP) PO SCH (21:14)
[2023-10-25] MEDS: MELATONIN 5 MG TABLETS PO SCH (21:14)
[2023-10-25] MEDS: QUEtiapine FUMARATE 100 MG TABLET (FP) PO SCH (21:15)
[2023-10-26] MEDS: QUEtiapine FUMARATE 100 MG TABLET (FP) PO SCH (21:03)
[2023-10-26] MEDS: MELATONIN 5 MG TABLETS PO SCH (21:03)
[2023-10-26] MEDS: THIAMINE HCL 100 MG TABLET (FP) PO SCH (21:03)
[2023-10-27] MEDS: THIAMINE HCL 100 MG TABLET (FP) PO SCH (21:02)
[2023-10-27] MEDS: MELATONIN 5 MG TABLETS PO SCH (21:03)
[2023-10-27] MEDS: QUEtiapine FUMARATE 100 MG TABLET (FP) PO SCH (21:03)
[2023-10-28] MEDS: THIAMINE HCL 100 MG TABLET (FP) PO SCH (21:03)
[2023-10-28] MEDS: QUEtiapine FUMARATE 100 MG TABLET (FP) PO SCH (21:03)
[2023-10-28] MEDS: MELATONIN 5 MG TABLETS PO SCH (21:03)
[2023-10-29 06:41] VITALS: BP 114/90; PULSE 89; RESP 16; TEMP 98.4
== END 2023-10-29 08:50 | disposition home or self-care (01) | DRG 772 ==
LOC: YASAS 23:35 → Y3E 10-17 03:42
PROVIDERS: ADMIT Allergy & Immunology; ATTEND Psychiatry & Neurology Pain Medicine
PROC: HZ42ZZZ Group Counseling for Substance Abuse Treatment, Cognitive-Behavioral (ICD-10-PCS; principal; 2023-10-17)
DX: F10.20 Alcohol dependence, uncomplicated (principal); F14.20 Cocaine dependence, uncomplicated; F12.20 Cannabis dependence, uncomplicated; F10.282 Alcohol dependence with alcohol-induced sleep disorder; F19.24 Other psychoactive substance dependence with psychoactive substance-induced mood disorder; D53.1 Other megaloblastic anemias, not elsewhere classified; D72.810 Lymphocytopenia; G47.00 Insomnia, unspecified; Z56.0 Unemployment, unspecified; Z59.00 Homelessness unspecified
CPT/HCPCS: 36415; 80053; 80307; 81003; 82962; 85027; 86780; 86803; 87635

== ENCOUNTER 2024-01-20 10:37 | Inpatient (IN) | payer OTHER ==
[2024-01-20 11:11] VITALS: BMI 18.8
[2024-01-20] MEDS ORDERED: BENZONATATE 200 MG CAPSULE PO PRN (11:26)
[2024-01-20] MEDS ORDERED: POLYETHYLENE GLYCOL (HEALTHYLAX) 3350 17 GM PACKET PO PRN (11:26)
[2024-01-20] MEDS ORDERED: BENZOCAINE/MENTHOL (CHLORASEPTIC ) LOZENGE MM PRN (11:26)
[2024-01-20] MEDS ORDERED: MAGNESIUM HYDROX 2400MG/30ML ORAL SUSPENSION 30 ML CUP PO PRN (11:26)
[2024-01-20] MEDS ORDERED: MAG HYDROX/AL HYDROX/SIMETH 30 ML UNIT-DOSE CUP PO PRN (11:26)
[2024-01-20] MEDS ORDERED: IBUPROFEN 600 MG TABLET (FP) PO PRN (11:26)
[2024-01-20] MEDS ORDERED: guaiFENesin 600 MG TABLET.ER (FP) PO PRN (11:26)
[2024-01-20] MEDS ORDERED: ACETAMINOPHEN 325 MG TABLET (FP) PO PRN (11:26)
[2024-01-20] MEDS ORDERED: LOPERAMIDE HCL 2 MG CAPSULE PO PRN (11:26)
[2024-01-20] MEDS ORDERED: IBUPROFEN 400 MG TABLET (FP) PO PRN (11:26)
[2024-01-20] MEDS ORDERED: TUBERCULIN PPD 5 TU/0.1ML VIAL ID ONE (15:55)
[2024-01-20] MEDS: THIAMINE HCL 100 MG TABLET (FP) PO SCH (21:00)
[2024-01-20] MEDS: MELATONIN 5 MG TABLETS PO SCH (21:00)
[2024-01-20] MEDS: traZODone HCL 50 MG TABLET (FP) PO PRN (21:01)
[2024-01-21] MEDS: PRENATAL VITAMINS W/ FOLIC ACID TABLET (FP) PO SCH (10:35)
[2024-01-21 11:24] LABS: EPI CELLS 15 /uL (0-25.1); HYALINE CASTS 2 /uL (0-3.1); PH,URINE 6.5 (5.0-8.0); URINE APPEARANCE CLEAR; URINE BACTERIA 7 /uL (0-1359); URINE BILIRUBIN NEGATIVE (NEGATIVE); URINE COLOR YELLOW; URINE GLUCOSE (UA) NEGATIVE (NEGATIVE); URINE KETONE NEGATIVE (NEGATIVE); URINE LEUK ESTERASE TRACE (NEGATIVE); URINE NITRITE NEGATIVE (NEGATIVE); URINE PROTEIN NEGATIVE (NEGATIVE); URINE RBC 10 /uL (0-23.9); URINE UROBILINOGEN 0.2 mg/dL (0.2-1.0); URINE WBC 18 /uL (0-25.8)
[2024-01-21 11:25] LABS: HEMATOCRIT 37.2 % (35.4-49); HEMOGLOBIN 12.1 GM/dL (11.7-16.9); MCH 32.5 pg (25.7-33.7); MCHC 32.4 g/dl (32.0-35.9); MEAN CELL VOLUME 100.2 fl (80-96); PLATELET COUNT 168 10^3/uL (134-434); POTASSIUM 4.2 mmol/L (3.5-5.1); RBC 3.72 M/mm3 (4.00-5.60); RDW 13.8 % (11.9-15.9); WHITE BLOOD COUNT 2.8 K/mm3 (4.0-10.0)
[2024-01-21 11:29] LABS: CALCIUM 8.8 mg/dL (8.5-10.1)
[2024-01-21 11:30] LABS: BLOOD UREA NITROGEN 16.3 mg/dL (7-18)
[2024-01-21 11:33] LABS: CREATININE 1.5 mg/dL (0.55-1.3); TOT PROT 6.6 g/dl (6.4-8.2)
[2024-01-21 11:35] LABS: BILIRUBIN,TOTAL 0.6 mg/dL (0.2-1)
[2024-01-21] MEDS: QUEtiapine FUMARATE 100 MG TABLET (FP) PO SCH (21:04)
[2024-01-25 06:51] VITALS: RESP 18
[2024-01-28 07:03] VITALS: BP 129/83; PULSE 87; TEMP 97
== END 2024-01-28 10:22 | disposition home or self-care (01) | DRG 772 ==
LOC: YASAS 10:37 → Y5N 11:59
PROVIDERS: ADMIT Allergy & Immunology; ATTEND Psychiatry & Neurology Pain Medicine
PROC: HZ42ZZZ Group Counseling for Substance Abuse Treatment, Cognitive-Behavioral (ICD-10-PCS; principal; 2024-01-20)
DX: F10.20 Alcohol dependence, uncomplicated (principal); F14.20 Cocaine dependence, uncomplicated; F12.20 Cannabis dependence, uncomplicated; F25.0 Schizoaffective disorder, bipolar type; F19.282 Other psychoactive substance dependence with psychoactive substance-induced sleep disorder; F19.24 Other psychoactive substance dependence with psychoactive substance-induced mood disorder; F32.A Depression, unspecified; Z56.0 Unemployment, unspecified; Z59.01 Sheltered homelessness
CPT/HCPCS: 36415; 80053; 81003; 82962; 85027; 86780; 87811

== ENCOUNTER 2024-04-14 09:39 | Inpatient (IN) | payer OTHER ==
[2024-04-14 09:59] VITALS: BMI 14.3
[2024-04-14] MEDS ORDERED: LOPERAMIDE HCL 2 MG CAPSULE PO PRN (10:29)
[2024-04-14] MEDS ORDERED: MAGNESIUM HYDROX 2400MG/30ML ORAL SUSPENSION 30 ML CUP PO PRN (10:29)
[2024-04-14] MEDS ORDERED: BENZONATATE 200 MG CAPSULE PO PRN (10:29)
[2024-04-14] MEDS ORDERED: NALOXONE (NARCAN) HCL 4 MG/0.1 ML SPRAY NS PRN (10:29)
[2024-04-14] MEDS ORDERED: IBUPROFEN 600 MG TABLET (FP) PO PRN (10:29)
[2024-04-14] MEDS ORDERED: MAG HYDROX/AL HYDROX/SIMETH 30 ML UNIT-DOSE CUP PO PRN (10:29)
[2024-04-14] MEDS ORDERED: guaiFENesin 600 MG TABLET.ER (FP) PO PRN (10:29)
[2024-04-14] MEDS ORDERED: IBUPROFEN 400 MG TABLET (FP) PO PRN (10:29)
[2024-04-14] MEDS ORDERED: POLYETHYLENE GLYCOL (HEALTHYLAX) 3350 17 GM PACKET PO PRN (10:29)
[2024-04-14] MEDS ORDERED: BENZOCAINE/MENTHOL (CHLORASEPTIC ) LOZENGE MM PRN (10:29)
[2024-04-14] MEDS ORDERED: hydrOXYzine PAMOATE 25 MG CAPSULE (FP) PO PRN (10:29)
[2024-04-14] MEDS ORDERED: NALOXONE HCL 0.4 MG/ML VIAL IM PRN (10:29)
[2024-04-14] MEDS: NALTREXONE HCL 50 MG TABLET PO ONE (11:42)
[2024-04-14] MEDS: THIAMINE 100 MG TABLET PO SCH (21:23)
[2024-04-14] MEDS: traZODone HCL 50 MG TABLET (FP) PO SCH (21:23)
[2024-04-14] MEDS: MELATONIN 5 MG TABLETS PO SCH (21:23)
[2024-04-15] MEDS ORDERED: NALTREXONE HCL 50 MG TABLET PO SCH (10:00)
[2024-04-15] MEDS: PRENATAL VITAMINS W/ FOLIC ACID TABLET (FP) PO SCH (10:31)
[2024-04-15] MEDS: NALTREXONE HCL 50 MG TABLET PO ONE (10:43)
[2024-04-15 14:12] LABS: CHLORIDE 104 mmol/L (98-107); POTASSIUM 4.6 mmol/L (3.5-5.1); SODIUM 138 mmol/L (136-145)
[2024-04-15 14:13] LABS: HEMOGLOBIN 13.6 GM/dL (11.7-16.9); MCH 32.7 pg (25.7-33.7); MCHC 34.1 g/dl (32.0-35.9); MEAN CELL VOLUME 95.9 fl (80-96); MEAN PLT VOLUME 7.4 fl (7.5-11.1); PLATELET COUNT 155 10^3/uL (134-434); RBC 4.17 M/mm3 (4.00-5.60); RDW 13.8 % (11.9-15.9); WHITE BLOOD COUNT 5.9 K/mm3 (4.0-10.0)
[2024-04-15 14:15] LABS: ANION GAP 2 mmol/L (4-13); CO2 32 mmol/L (21-32)
[2024-04-15 14:17] LABS: CALCIUM 9.1 mg/dL (8.5-10.1)
[2024-04-15 14:18] LABS: ALBUMIN 3.3 g/dl (3.4-5.0); BLOOD UREA NITROGEN 20.4 mg/dL (7-18); GLUCOSE,RANDOM 112 mg/dL (74-106)
[2024-04-15 14:21] LABS: SGOT/AST 62 U/L (15-37)
[2024-04-15 14:22] LABS: BILIRUBIN,TOTAL 0.8 mg/dL (0.2-1); TOT PROT 6.8 g/dl (6.4-8.2)
[2024-04-15 14:23] LABS: ALK PHOS 85 U/L (45-117)
[2024-04-15 14:24] LABS: CREATININE 1.7 mg/dL (0.55-1.3); SGPT/ALT 65 U/L (13-61)
[2024-04-16] MEDS: ACETAMINOPHEN 325 MG TABLET (FP) PO PRN (06:35)
[2024-04-16] MEDS: NALTREXONE HCL 50 MG TABLET PO SCH (10:29)
[2024-04-16 11:20] LABS: EPI CELLS 5 /uL (0-25.1); HYALINE CASTS 0 /uL (0-3.1); URINE APPEARANCE CLEAR; URINE BACTERIA 4 /uL (0-1359); URINE BILIRUBIN NEGATIVE (NEGATIVE); URINE COLOR YELLOW; URINE GLUCOSE (UA) NEGATIVE (NEGATIVE); URINE KETONE NEGATIVE (NEGATIVE); URINE LEUK ESTERASE TRACE (NEGATIVE); URINE NITRITE NEGATIVE (NEGATIVE); URINE PROTEIN NEGATIVE (NEGATIVE); URINE RBC 8 /uL (0-23.9); URINE WBC 23 /uL (0-25.8)
[2024-04-16] MEDS: LACTULOSE 20 GM/30 ML UDC (FOR ORAL USE ONLY) PO SCH (14:10)
[2024-04-18] MEDS: QUEtiapine FUMARATE 100 MG TABLET (FP) PO SCH (21:25)
[2024-04-19 07:15] VITALS: RESP 18
[2024-04-21 07:00] VITALS: BP 126/85; PULSE 83; TEMP 97.5
== END 2024-04-21 08:36 | disposition home or self-care (01) | DRG 772 ==
LOC: YASAS 09:39 → Y3W 10:50
PROVIDERS: ADMIT Allergy & Immunology; ATTEND Psychiatry & Neurology Pain Medicine
PROC: HZ42ZZZ Group Counseling for Substance Abuse Treatment, Cognitive-Behavioral (ICD-10-PCS; principal; 2024-04-14)
DX: F14.20 Cocaine dependence, uncomplicated (principal); F10.20 Alcohol dependence, uncomplicated; F12.20 Cannabis dependence, uncomplicated; F19.282 Other psychoactive substance dependence with psychoactive substance-induced sleep disorder; F19.24 Other psychoactive substance dependence with psychoactive substance-induced mood disorder; F31.9 Bipolar disorder, unspecified; E72.20 Disorder of urea cycle metabolism, unspecified; D53.1 Other megaloblastic anemias, not elsewhere classified; R63.4 Abnormal weight loss; Z68.1 Body mass index [BMI] 19.9 or less, adult; Z59.01 Sheltered homelessness
CPT/HCPCS: 36415; 80053; 80305; 80307; 81003; 82140; 85027; 86780; 87811; 93005; 93010